=== PATIENT | female | born 1965 | race Caucasian/White ===

== ENCOUNTER 2016-11-09 10:03 | Inpatient (IN) | payer BC ==
[2016-11-09] MEDS ORDERED: Acetaminophen 325 MG Tab PO PRN (11:30)
[2016-11-09] MEDS ORDERED: Zolpidem 5 MG Tab PO PRN (11:30)
[2016-11-09] MEDS ORDERED: Morphine 2 MG/ML Syringe IVPUSH PRN (11:30)
[2016-11-09] MEDS ORDERED: Ondansetron 4 MG/2 ML SDV IVPUSH PRN (11:30)
[2016-11-09] MEDS ORDERED: Albuterol/Ipratropium 3.0-0.5 MG/3 ML Neb Soln NEB PRN (11:46)
[2016-11-09] MEDS ORDERED: TRIAMCINOLONE ACETONIDE TOP SCH (12:00)
[2016-11-09] MEDS ORDERED: TRETINOIN TOP SCH (12:00)
[2016-11-09] MEDS ORDERED: Barium Sulfate w/v 2.1% Oral Susp 450 ML Bottle PO ONE (12:01)
[2016-11-09] MEDS ORDERED: Iopamidol 612 MG/ML 100 ML Bottle IVPUSH ONE (12:01)
--- NOTE | 2016-11-09 12:05 | PCM.HP ---
H&P History of Present Illness - General Date of Service: 11/09/16 Admit Problem/Dx: Admission Diagnosis/Problem Admission Diagnosis/Problem Diverticulitis Source of Information: Patient, Family - History of Present Illness Initial Comments - Free Text/Narative: 50-year-old female with a past medical history of obesity, obstructive sleep apnea, hypertension, COPD, lower extremities edema, anxiety disorder, acne presented to Hospital as a direct admission from [facility] for low potassium. Patient stated that for the last 1 month she has been having left lower quadrant intermittent pain, diarrhea, nausea, vomiting, feeling sluggish and tired and not getting better. On September, she was seen in the clinic and had CT scan of abdomen and pelvis reported "diverticulosis and bowel wall thickening along the descending colon. Mild pericolonic inflammatory changes. No evidence of perforation or abscess formation or bleeding. Findings consistent with acute diverticulitis." At that time she was given Levaquin for 7 days. Patient symptoms continues and her diarrhea was on and off but since last Monday her diarrhea has been consistent. She has 3 watery episodes of diarrhea every day. She reported fever and chills. Recorded temperature at home 99.4. She denies blood or mucus in the stool. She denies history of traveling overseas or having antibiotic in the last few months prior to her Levaquin. She said she is maintaining good oral fluid intake. Patient denies chest pain, worsening of her baseline shortness breaths, increase of lower extremities edema , dysuria, urinary frequency, unilateral weakness/numbness/tingling, rash, headache, upper respiratory symptoms, any other symptoms or concerns. Patient denies personal history of similar problem in the past. She denies personal and family history of colon cancer or intra-abdominal cancer peptic ulcer, or Crohn or ulcerative colitis disease. She denies history of C. difficile. She admitted history of cholecystectomy 2 years ago. At the clinic she was seen yesterday and her potassium was 2.7. She was given potassium chloride 20 mEq IV and 40 mEq orally. Her potassium this morning was 2.8. - Related Data Allergies/Adverse Reactions: Allergies Allergy/AdvReac Type Severity Reaction Status Date / Time Penicillins Allergy Swollen Verified 11/08/16 16:31 Tongue CAT HAIR EXTRACT Allergy UNKNOWN Uncoded 11/08/16 16:31 DUST MITE EXTRACT Allergy UNKNOWN Uncoded 11/08/16 16:31 MOLDS AND SMUTS Allergy UNKNOWN Uncoded 11/08/16 16:31 Home Medications: Home Meds Budesonide/Formoterol [Symbicort 160-4.5 MCG] 2 puff INH BID 05/06/14 [History] Ipratropium/Albuterol Sulfate [Iprat-Albut 0.5-3(2.5) mg/3 ml] 3 ml IH Q4HR PRN 05/06/14 [History] Budesonide/Formoterol Fumarate [Symbicort 160-4.5 Mcg Inhaler] 2 puff INH BID [History] DULoxetine [Cymbalta] 1 tab PO BEDTIME 11/08/16 [History] Furosemide [Lasix] 1 tab PO DAILY 11/08/16 [History] Metolazone [Metolazone] 1 tab PO DAILY 11/08/16 [History] Ondansetron [Zofran Odt] 1 tab PO ASDIRECTED 11/08/16 [History] Potassium Chloride 1 - 2 tab PO BID 11/08/16 [History] Tretinoin [Retin-A] 1 squirt TOP ASDIRECTED 11/08/16 [History] Triamcinolone Acetonide [Kenalog 0.1% Lotion] 1 squirt TOP ASDIRECTED 11/08/16 [ History] atorvaSTATin [Lipitor] 40 mg PO BEDTIME 11/08/16 [History] metFORMIN HCl [Metformin HCl] 1,000 mg PO BID 11/08/16 [History] Past Medical History HEENT History: Reports: Sinusitis Cardiovascular History: Reports: Hypertension, Other (See Below) Other Cardiovascular History: low potassium Respiratory History: Reports: COPD, Pneumonia, Recurrent, Sleep Apnea, Other ( See Below) Other Respiratory History: emphysema, acute respiratory disorder Gastrointestinal History: Reports: Diverticulosis, Other (See Below) Other Gastrointestinal History: diverticulitis Genitourinary History: Reports: None 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: , 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 Musculoskeletal History: Reports: None Neurological History: Reports: None Psychiatric History: Reports: Anxiety Endocrine/Metabolic History: Reports: Diabetes, Type II Other Endocrine/Metabolic History: borderline diabetic Hematologic History: Reports: None Immunologic History: Reports: None Oncologic (Cancer) History: Reports: None Dermatologic History: Reports: Other (See Below) Other Dermatologic History: acne - Infectious Disease History Infectious Disease History: Reports: None - Past Surgical History Head Surgeries/Procedures: Reports: None HEENT Surgical History: Reports: None Cardiovascular Surgical History: Reports: None Respiratory Surgical History: Reports: None GI Surgical History: Reports: Cholecystectomy, Colonoscopy Female Surgical History: Reports: Breast Biopsy Musculoskeletal Surgical History: Reports: None Social & Family History - Family History Family Medical History: Noncontributory - Tobacco Use Smoking Status *Q: Former Smoker Years of Tobacco use: 36 Used Tobacco, but Quit: No Month Tobacco Last Used: 2 days ago Tobacco Use Comment: quit 3 years ago Second Hand Smoke Exposure: No - Caffeine Use Caffeine Use: Reports: None - Alcohol Use Days Per Week of Alcohol Use: 0 - Recreational Drug Use Recreational Drug Use: No H&P Review of Systems - Review of Systems: Review Of Systems: ROS reveals no pertinent complaints other than HPI. Exam - Exam Exam: See Below - Vital Signs Vital Signs: Last Vital Signs Temp 36.1 C 11/09/16 11:32 Pulse 92 11/09/16 11:32 Resp 20 11/09/16 11:32 BP 133/65 11/09/16 11:32 Pulse Ox 97 11/09/16 11:32 Weight: 107.955 kg - Exam General: Alert, Oriented, Cooperative, Mild Distress. No: Moderate Distress, Severe Distress, Sedated, Lethargic, Obtunded HEENT: Conjunctiva Clear, EACs Clear, EOMI, Hearing Intact, Mucosa Moist & [place] , Nares Patent, Normal Nasal Septum, Posterior Pharynx Clear, Pupils Equal, Pupils Reactive, TMs Clear, Other (Dry mucosa) Neck: Supple, Trachea Midline. No: JVD Lungs: Clear to Auscultation, Normal Respiratory Effort, Decreased Breath Sounds. No: Crackles, Rales, Rhonchi, Wheezing Cardiovascular: Regular Rate, Regular Rhythm GI/Abdominal Exam: Normal Bowel Sounds, Soft, No Organomegaly, No Distention, No Abnormal Bruit, No Mass, Pelvis Stable, Tender (In left lower quadrant), Other (Overall difficult to do comprehensive exam due to body habitus). No: Distended, Guarding, Rigid, Rebound (Female) Exam: Deferred Rectal (Female) Exam: Deferred Back Exam: Normal Inspection, Full Range of Motion Extremities: Normal Inspection, Normal Range of Motion, Non-Tender, No Pedal Edema, Normal Capillary Refill Skin: Warm, Dry, Intact Neurological: Cranial Nerves Intact Neuro Extensive - Mental Status: Alert, Oriented x3, Normal Mood/Affect Psychiatric: Alert. No: Suicidal Ideation, Homicidal Ideation, Hallucinations *Q Meaningful Use (ADM) - VTE *Q VTE Criteria *Q: - Stroke *Q Stroke Criteria *Q: - AMI *Q AMI Criteria *Q: - Problem List (1) Hypokalemia SNOMED Code(s): 41521049 ICD Code: E87.6 - HYPOKALEMIA Status: Acute Priority: High (2) Diverticulitis SNOMED Code(s): 275741682 ICD Code: K57.92 - DVTRCLI OF INTEST, PART UNSP, W/O PERF OR ABSCESS W/O BLEED Status: Acute Priority: High (3) COPD (chronic obstructive pulmonary disease) SNOMED Code(s): 61100686 ICD Code: J44.9 - CHRONIC OBSTRUCTIVE PULMONARY DISEASE, UNSPECIFIED Status : Chronic (4) Morbid obesity with BMI of 45.0-49.9, adult SNOMED Code(s): 041055404 ICD Code: E66.01 - MORBID (SEVERE) OBESITY DUE TO EXCESS CALORIES; Z68.42 - BODY MASS INDEX (BMI) 45.0-49.9, ADULT Status: Chronic (5) Lower extremity edema SNOMED Code(s): 163657744 ICD Code: R60.0 - LOCALIZED EDEMA Status: Chronic Problem List Initiated/Reviewed/Updated: Yes Orders Last 24hrs: Active Orders 24 hr Category Date Time Status Patient Status [ADT] Routine ADT 11/09/16 11:30 Ordered Antiembolic Devices [RC] PER UNIT ROUTINE Care 11/09/16 11:34 Ordered Bedrest Bathroom Privileges [RC] ASDIRECTED Care 11/09/16 11:30 Ordered Blood Glucose Check, Bedside [RC] QIDACANDBED Care 11/09/16 11:30 Ordered Height and Weight [RC] DAILY Care 11/09/16 11:30 Ordered Intake and Output [RC] Q6H Care 11/09/16 11:32 Ordered Notify Provider Vital Signs [RC] ASDIRECTED Care 11/09/16 11:32 Ordered Oxygen Therapy [RC] PRN Care 11/09/16 11:30 Ordered VTE/DVT Education [RC] PER UNIT ROUTINE Care 11/09/16 11:30 Ordered Vital Signs [RC] Q4H Care 11/09/16 11:30 Ordered Nothing per Oral Now Diet [DIET] Diet 11/09/16 Breakfast Ordered Abdomen Pelvis w Cont [CT] Routine Exams 11/09/16 11:51 Ordered C DIFFICILE TOXIN BY PCR [MREF] Urgent Lab 11/09/16 11:44 Uncollected C-REACTIVE PROTEIN [CHEM] Routine Lab 11/09/16 11:30 Ordered CBC WITH AUTO DIFF [HEME] AM Lab 11/10/16 05:11 Ordered CBC WITH AUTO DIFF [HEME] Routine Lab 11/09/16 11:30 Ordered COMPREHENSIVE METABOLIC PN,CMP [CHEM] AM Lab 11/10/16 05:11 Ordered COMPREHENSIVE METABOLIC PN,CMP [CHEM] Routine Lab 11/09/16 11:30 Ordered CRP [C-REACTIVE PROTEIN] [CHEM] AM Lab 11/10/16 05:11 Ordered CULTURE BLOOD [BC] Stat Lab 11/09/16 11:40 Ordered CULTURE BLOOD [BC] Stat Lab 11/09/16 11:40 Ordered CULTURE STOOL [RM] Routine Lab 11/09/16 11:44 Uncollected Acetaminophen [Tylenol] Med 11/09/16 11:30 Ordered 650 mg PO Q4H PRN Albuterol/Ipratropium [DuoNeb 3.0-0.5 MG/3 ML] Med 11/09/16 11:46 Ordered 3 ml NEB Q4HR PRN Budesonide/Formoterol Fumarate Med 11/09/16 21:00 Ordered 2 puff INH BID Ciprofloxacin in D5W [Cipro in D5W 400 MG/200 ML] 400 Med 11/09/16 11:45 Ordered mg Premix Bag 1 bag IV Q12HR DULoxetine [Cymbalta] Med 11/09/16 21:00 Ordered 1 tab PO BEDTIME Enoxaparin [Lovenox] Med 11/10/16 09:00 Ordered 40 mg SUBCUT DAILY Morphine Med 11/09/16 11:30 Ordered 2 mg IVPUSH Q2H PRN Ondansetron [Zofran] Med 11/09/16 11:30 Ordered 4 mg IVPUSH Q6H PRN Potassium Chloride [KCl 10 MEQ in Water 100 ML] 10 meq Med 11/09/16 11:30 Ordered Premix Bag 1 bag IV Q1H Potassium Chloride [Klor-Con 10] Med 11/09/16 11:45 Ordered 40 meq PO BIDMEALS Sodium Chloride 0.9% @ 125 MLS/HR (1000ml) Med 11/09/16 11:30 Ordered Sodium Chloride 0.9% [Normal Saline] 1,000 ml IV ASDIRECTED Tretinoin [Retin-A] Med 11/09/16 12:00 Ordered 1 squirt TOP ASDIRECTED Triamcinolone Acetonide Med 11/09/16 12:00 Ordered 1 squirt TOP ASDIRECTED Zolpidem [Ambien] Med 11/09/16 11:30 Ordered 5 mg PO BEDTIME PRN atorvaSTATin [Lipitor] Med 11/09/16 21:00 Ordered 40 mg PO BEDTIME metroNIDAZOLE/Normal Saline [Flagyl 500 MG in NS 100 ML Med 11/09/16 11:45 Ordered ] 500 mg Premix Bag 100 bag IV Q8H Antiembolic Hose [OM.PC] Per Unit Routine Oth 11/09/16 11:33 Ordered Blood Culture x2 Reflex Set [OM.PC] Stat Oth 11/09/16 11:30 Ordered Resuscitation Status Routine Resus Stat 11/09/16 11:30 Ordered Medication Orders Acetaminophen (Tylenol) 650 mg PO Q4H PRN PRN Reason: Pain (Mild 1-3)/fever Albuterol/Ipratropium (Duoneb 3.0-0.5 Mg/3 Ml) 3 ml NEB Q4HR PRN PRN Reason: Shortness of Breath Duloxetine HCl (Cymbalta) mg PO BEDTIME MORIAH Enoxaparin Sodium (Lovenox) 40 mg SUBCUT DAILY MORIAH Potassium Chloride 10 meq/ (Premix) 100 mls @ 100 mls/hr IV Q1H [facility] Stop: 11/09/16 15:29 Sodium Chloride (Normal Saline) 1,000 mls @ 125 mls/hr IV ASDIRECTED [facility]IA[facility] Stop: 11/10/16 11:31 Ciprofloxacin/Dextrose 400 mg/ (Premix) 200 mls @ 200 mls/hr IV Q12HR [facility] Metronidazole 500 mg/ Premix 100 mls @ 100 mls/hr IV Q8H [facility] Morphine Sulfate (Morphine) 2 mg IVPUSH Q2H PRN PRN Reason: Pain (severe 7-10) Non-Formulary Medication (Atorvastatin [Lipitor]) 40 mg PO BEDTIME MORIA[facility] Non-Formulary Medication (Budesonide/Formoterol Fumarate) 2 puff INH BID [facility] Non-Formulary Medication (Tretinoin [Retin-A]) 1 squirt TOP ASDIRECTED [facility] Non-Formulary Medication (Triamcinolone Acetonide) 1 squirt TOP ASDIRECTED [facility] Ondansetron HCl (Zofran) 4 mg IVPUSH Q6H PRN PRN Reason: Nausea/Vomiting Potassium Chloride (Klor-Con 10) 40 meq PO BIDMEALS [facility] Stop: 11/10/16 08:01 Zolpidem Tartrate (Ambien) 5 mg PO BEDTIME PRN PRN Reason: Sleep Assessment/Plan Comment:: Assessment and plan Hypokalemia, most likely from GI loss Potassium on admission 2.8. EKG was done yesterday and I reviewed it and did not show abnormal acute findings -Potassium chloride 40 mEq IV now with 40 mEq orally now. -Potassium chloride 40 mEq by mouth every 8 hours for total of 3 doses -check potassium this evening and tomorrow morning Diverticulitis -CT abdomen and pelvis with contrast ordered -C. difficile and stool cultures ordered -CBC and CRP ordered -Start ciprofloxacin and Flagyl IV -Morphine for pain as needed -Nothing by mouth except meds and sips -She is follow-up with GI for possible colonoscopy after being discharged Dehydration, from GI loss -Normal saline fluid infusion at 1 25 mL per hour -CMP ordered History of COPD, no exacerbation Continue home medication of Symbicort and DuoNeb Diabetes mellitus type 2 -Hold metformin since she is going to have IV contrast Sliding scale insulin, low-dose Lovenox for DVT prophylaxis She is full code
[2016-11-09] MEDS: Potassium Chloride 10 MEQ Tab.ER PO SCH ×2 (12:28→18:04)
[2016-11-09] MEDS: Ciprofloxacin in D5W 400 MG in Premix Bag 1 BAG IV SCH ×4 (12:28→22:27)
[2016-11-09] MEDS: Sodium Chloride 0.9% 1,000 ML IV SCH ×2 (12:28→22:28)
[2016-11-09] MEDS: Potassium Chloride 10 MEQ in Premix Bag 1 BAG IV SCH ×4 (12:29→18:02)
[2016-11-09 12:35] LABS: CHLORIDE,CL 92 mmol/L (101-111); SODIUM,NA 138 mmol/L (135-145)
[2016-11-09] MEDS: metroNIDAZOLE/Normal Saline 500 MG in Premix Bag 100 BAG IV SCH ×2 (14:44→20:56)
[2016-11-09] MEDS: Insulin Aspart 100 Units/ML 3 ML Pen SUBCUT SCH ×2 (16:56→22:30)
[2016-11-09] MEDS: Formoterol/Mometasone 200-5 MCG 8.8 GM Inhaler IH SCH (21:30)
[2016-11-10] MEDS ORDERED: Potassium Chloride 10 MEQ Tab.ER PO ONE (00:01)
[2016-11-10] MEDS: metroNIDAZOLE/Normal Saline 500 MG in Premix Bag 100 BAG IV SCH ×3 (04:57→21:37)
[2016-11-10] MEDS: Sodium Chloride 0.9% 1,000 ML IV SCH (06:41)
[2016-11-10 07:05] LABS: CHLORIDE,CL 101 mmol/L (101-111); SODIUM,NA 139 mmol/L (135-145)
[2016-11-10] MEDS ORDERED: Magnesium Sulfate/Water 2 GM in Premix Bag 1 BAG IV ONE (08:34)
[2016-11-10] MEDS: Ciprofloxacin in D5W 400 MG in Premix Bag 1 BAG IV SCH ×4 (09:07→23:20)
[2016-11-10] MEDS: Insulin Aspart 100 Units/ML 3 ML Pen SUBCUT SCH ×4 (09:08→22:04)
[2016-11-10] MEDS: atorvaSTATin 20 MG Tab PO SCH (09:08)
[2016-11-10] MEDS: DULoxetine 30 MG Cap PO SCH (09:08)
[2016-11-10] MEDS: Enoxaparin 40 MG/0.4 ML Syringe SUBCUT SCH (09:10)
[2016-11-10] MEDS: Formoterol/Mometasone 200-5 MCG 8.8 GM Inhaler IH SCH ×2 (09:11→21:57)
[2016-11-10] MEDS ORDERED: Sodium Chloride 0.9% 1,000 ML IV SCH (10:45)
--- NOTE | 2016-11-10 12:26 | PCM.PN ---
- General Info Date of Service: 11/10/16 Admission Dx/Problem (Free Text): Admission Diagnosis/Problem Admission Diagnosis/Problem Diverticulitis Subjective Update: Patient stated that she is feeling better. Her abdominal pain is better and has not had diarrhea since admission. She denies nausea, vomiting, fever, chills, chest pain, shortness breath, lower extremity edema, any other symptoms or concerns. - Patient Data Vitals - Most Recent: Last Vital Signs Temp 36.6 C 11/10/16 11:53 Pulse 77 11/10/16 11:53 Resp 20 11/10/16 11:53 BP 116/54 L 11/10/16 11:53 Pulse Ox 95 11/10/16 11:53 Weight - Most Recent: 110.393 kg I&O - Last 24 Hours: Intake & Output 11/09/16 11/10/16 11/10/16 22:59 06:59 14:59 Intake Total 1343 2075 190 Output Total 700 700 Balance 1343 1375 -510 Lab Results Last 24 Hours: Laboratory Results - last 24 hr 11/09/16 11/09/16 11/09/16 Range/Units 12:00 12:00 16:44 WBC (5.0-10.0) 10^3/uL RBC (4.2-5.4) 10^6/uL Hgb (12.0-16.0) g/dL Hct (37.0-47.0) % MCV (80-100) fL MCH (27.0-34.0) pg MCHC (33.0-35.0) g/dL Plt Count (150-450) 10^3/uL Neut % (Auto) (42.2-75.2) % Lymph % (Auto) (20.5-50.1) % Jones % (Auto) (2-8) % Eos % (Auto) (1.0-3.0) % Baso % (Auto) (0.0-1.0) % Sodium 138 (135-145) mmol/L Potassium 3.0 L (3.6-5.0) mmol/L Chloride 92 L (101-111) mmol/L Carbon Dioxide 30.0 (21.0-31.0) mmol/L Anion Gap 19.0 BUN 16 (7-18) mg/dL Creatinine 0.7 (0.6-1.3) mg/dL Est Cr Clr Drug Dosing 70.94 mL/min Estimated GFR (MDRD) > 60 BUN/Creatinine Ratio 22.85 Glucose 219 H (74-105) mg/dL POC Glucose 124 H (70-105) mg/dl Calcium 9.7 (8.4-10.2) mg/dl Phosphorus (2.5-4.6) mg/dL Magnesium (1.8-2.5) mg/dL Total Bilirubin 0.8 (0.2-1.0) mg/dL AST 43 H (10-42) IU/L ALT 40 (10-60) IU/L Alkaline Phosphatase 66 (42-121) IU/L C-Reactive Protein 1.0 (0.0-1.3) mg/dL Total Protein 7.0 (6.7-8.2) g/dl Albumin 3.8 (3.2-5.5) g/dl Globulin 3.2 Albumin/Globulin Ratio 1.19 11/09/16 11/09/16 11/10/16 Range/Units 18:30 20:40 06:30 WBC 5.8 (5.0-10.0) 10^3/uL RBC 4.31 (4.2-5.4) 10^6/uL Hgb 13.2 (12.0-16.0) g/dL Hct 40.1 (37.0-47.0) % MCV 93.0 (80-100) fL MCH 30.6 (27.0-34.0) pg MCHC 32.9 L (33.0-35.0) g/dL Plt Count 277 (150-450) 10^3/uL Neut % (Auto) 51.9 (42.2-75.2) % Lymph % (Auto) 37.0 (20.5-50.1) % [place] % (Auto) 9.4 H (2-8) % Eos % (Auto) 1.4 (1.0-3.0) % Baso % (Auto) 0.3 (0.0-1.0) % Sodium (135-145) mmol/L Potassium 3.1 L (3.6-5.0) mmol/L Chloride (101-111) mmol/L Carbon Dioxide (21.0-31.0) mmol/L Anion Gap BUN (7-18) mg/dL Creatinine (0.6-1.3) mg/dL Est Cr Clr Drug Dosing mL/min Estimated GFR (MDRD) BUN/Creatinine Ratio Glucose (74-105) mg/dL POC Glucose 126 H (70-105) mg/dl Calcium (8.4-10.2) mg/dl Phosphorus (2.5-4.6) mg/dL Magnesium (1.8-2.5) mg/dL Total Bilirubin (0.2-1.0) mg/dL AST (10-42) IU/L ALT (10-60) IU/L Alkaline Phosphatase (42-121) IU/L C-Reactive Protein (0.0-1.3) mg/dL Total Protein (6.7-8.2) g/dl Albumin (3.2-5.5) g/dl Globulin Albumin/Globulin Ratio 11/10/16 11/10/16 11/10/16 Range/Units 06:30 06:30 06:30 WBC (5.0-10.0) 10^3/uL RBC (4.2-5.4) 10^6/uL Hgb (12.0-16.0) g/dL Hct (37.0-47.0) % MCV (80-100) fL MCH (27.0-34.0) pg MCHC (33.0-35.0) g/dL Plt Count (150-450) 10^3/uL Neut % (Auto) (42.2-75.2) % Lymph % (Auto) (20.5-50.1) % Jones % (Auto) (2-8) % Eos % (Auto) (1.0-3.0) % Baso % (Auto) (0.0-1.0) % Sodium 139 (135-145) mmol/L Potassium 3.7 (3.6-5.0) mmol/L Chloride 101 (101-111) mmol/L Carbon Dioxide 27.0 (21.0-31.0) mmol/L Anion Gap 14.7 BUN 12 (7-18) mg/dL Creatinine 0.8 (0.6-1.3) mg/dL Est Cr Clr Drug Dosing 62.07 mL/min Estimated GFR (MDRD) > 60 BUN/Creatinine Ratio 15.00 Glucose 179 H (74-105) mg/dL POC Glucose (70-105) mg/dl Calcium 8.2 L (8.4-10.2) mg/dl Phosphorus 3.6 (2.5-4.6) mg/dL Magnesium 1.7 L (1.8-2.5) mg/dL Total Bilirubin 0.9 (0.2-1.0) mg/dL AST 42 (10-42) IU/L ALT 38 (10-60) IU/L Alkaline Phosphatase 62 (42-121) IU/L C-Reactive Protein 1.0 (0.0-1.3) mg/dL Total Protein 6.4 L (6.7-8.2) g/dl Albumin 3.5 (3.2-5.5) g/dl Globulin 2.9 Albumin/Globulin Ratio 1.21 11/10/16 11/10/16 Range/Units 08:22 11:03 WBC (5.0-10.0) 10^3/uL RBC (4.2-5.4) 10^6/uL Hgb (12.0-16.0) g/dL Hct (37.0-47.0) % MCV (80-100) fL MCH (27.0-34.0) pg MCHC (33.0-35.0) g/dL Plt Count (150-450) 10^3/uL Neut % (Auto) (42.2-75.2) % Lymph % (Auto) (20.5-50.1) % Jones % (Auto) (2-8) % Eos % (Auto) (1.0-3.0) % Baso % (Auto) (0.0-1.0) % Sodium (135-145) mmol/L Potassium (3.6-5.0) mmol/L Chloride (101-111) mmol/L Carbon Dioxide (21.0-31.0) mmol/L Anion Gap BUN (7-18) mg/dL Creatinine (0.6-1.3) mg/dL Est Cr Clr Drug Dosing mL/min Estimated GFR (MDRD) BUN/Creatinine Ratio Glucose (74-105) mg/dL POC Glucose 167 H 207 H (70-105) mg/dl Calcium (8.4-10.2) mg/dl Phosphorus (2.5-4.6) mg/dL Magnesium (1.8-2.5) mg/dL Total Bilirubin (0.2-1.0) mg/dL AST (10-42) IU/L ALT (10-60) IU/L Alkaline Phosphatase (42-121) IU/L C-Reactive Protein (0.0-1.3) mg/dL Total Protein (6.7-8.2) g/dl Albumin (3.2-5.5) g/dl Globulin Albumin/Globulin Ratio Wu Results Last 24 Hours: Microbiology 11/09/16 12:08 Aerobic Blood Culture - Preliminary Blood - Venous NO GROWTH AFTER 1 DAY Anaerobic Blood Culture - Preliminary NO GROWTH AFTER 1 DAY 11/09/16 12:00 Aerobic Blood Culture - Preliminary Blood - Venous - Lab Draw NO GROWTH AFTER 1 DAY Anaerobic Blood Culture - Preliminary NO GROWTH AFTER 1 DAY 11/09/16 14:05 Stool Culture - Preliminary Other - Stool NORMAL ENTERIC MAYE 1 DAY Med Orders - Current: Current Medications Acetaminophen (Tylenol) 650 mg PO Q4H PRN PRN Reason: Pain (Mild 1-3)/fever Albuterol/Ipratropium (Duoneb 3.0-0.5 Mg/3 Ml) 3 ml NEB Q4HR PRN PRN Reason: Shortness of Breath Atorvastatin Calcium (Lipitor) 40 mg PO DAILY [facility] Last Admin: 11/10/16 09:08 Dose: 40 mg Duloxetine HCl (Cymbalta) 30 mg PO DAILY [facility] Last Admin: 11/10/16 09:08 Dose: 30 mg Enoxaparin Sodium (Lovenox) 40 mg SUBCUT DAILY [facility] Last Admin: 11/10/16 09:10 Dose: 40 mg Ciprofloxacin/Dextrose 400 mg/ (Premix) 200 mls @ 200 mls/hr IV Q12HR [facility] Last Admin: 11/10/16 09:07 Dose: 200 mls/hr Metronidazole 500 mg/ Premix 100 mls @ 100 mls/hr IV Q8H [facility] Last Admin: 11/10/16 04:57 Dose: 100 mls/hr Sodium Chloride (Normal Saline) 1,000 mls @ 75 mls/hr IV ASDIRECTED [facility] Stop: 11/11/16 10:46 Insulin Aspart (Novolog) 0 unit SUBCUT QIDACANDBED [facility] PRN Reason: Protocol Last Admin: 11/10/16 09:08 Dose: 1 units Mometasone Furoate/Formoterol Fumar (Dulera 200-5 Mcg) 2 puff IH BID [facility] Last Admin: 11/10/16 09:11 Dose: 2 puff Morphine Sulfate (Morphine) 2 mg IVPUSH Q2H PRN PRN Reason: Pain (severe 7-10) Ondansetron HCl (Zofran) 4 mg IVPUSH Q6H PRN PRN Reason: Nausea/Vomiting Zolpidem Tartrate (Ambien) 5 mg PO BEDTIME PRN PRN Reason: Sleep Discontinued Medications Barium Sulfate (Readi-Cat 2) 900 ml PO ONETIME ONE Stop: 11/09/16 12:02 Last Admin: 11/09/16 12:29 Dose: 900 ml Potassium Chloride 10 meq/ (Premix) 100 mls @ 100 mls/hr IV Q1H [facility] Stop: 11/09/16 16:29 Last Admin: 11/09/16 18:02 Dose: 100 mls/hr Sodium Chloride (Normal Saline) 1,000 mls @ 125 mls/hr IV ASDIRECTED [facility] Stop: 11/10/16 11:31 Last Admin: 11/10/16 06:41 Dose: 125 mls/hr Magnesium Sulfate 2 gm/ Premix 50 mls @ 25 mls/hr IV ONETIME ONE Stop: 11/10/16 10:33 Last Admin: 11/10/16 09:07 Dose: 25 mls/hr Iopamidol (Isovue-300 (61%)) 100 ml IVPUSH ONETIME ONE Stop: 11/09/16 12:02 Last Admin: 11/09/16 13:52 Dose: 100 ml Non-Formulary Medication (Tretinoin [Retin-A]) 1 squirt TOP ASDIRECTED [facility] Non-Formulary Medication (Triamcinolone Acetonide) 1 squirt TOP ASDIRECTED [facility] Potassium Chloride (Klor-Con 10) 40 meq PO BIDMEALS [facility] Stop: 11/09/16 18:01 Last Admin: 11/09/16 18:04 Dose: 40 meq Potassium Chloride (Klor-Con 10) 40 meq PO ONETIME ONE Stop: 11/10/16 00:02 Last Admin: 11/10/16 00:41 Dose: 40 meq - Exam General: Alert, Oriented, Cooperative. No: No Acute Distress, Moderate Distress , Severe Distress, Sedated, Lethargic, Obtunded HEENT: Pupils Equal, Pupils Reactive, EOMI, Mucous Membr. Moist/[place] Neck: Supple, Trachea Midline, No JVD Lungs: Clear to Auscultation, Normal Respiratory Effort Cardiovascular: Regular Rate, Regular Rhythm GI/Abdominal Exam: Normal Bowel Sounds, Soft, No Organomegaly, No Distention, No Abnormal Bruit, No Mass, Tender (Mild tenderness in left lower quadrant on deep palpation. Overall difficult to have comprehensive abdominal exam due to body habitus). No: Distended, Guarding, Rigid, Rebound (Female) Exam: Deferred Back Exam: Normal Inspection, Full Range of Motion Extremities: Normal Inspection, Normal Range of Motion, Non-Tender, No Pedal Edema, Normal Capillary Refill Skin: Warm, Dry, Intact Neurological: No New Focal Deficit Psy/Mental Status: Alert, Normal Affect, Normal Mood - Problem List & Annotations (1) Hypokalemia SNOMED Code(s): 73875206 Code(s): E87.6 - HYPOKALEMIA Status: Acute Priority: High Current Visit : Yes (2) Diverticulitis SNOMED Code(s): 605176345 Code(s): K57.92 - DVTRCLI OF INTEST, PART UNSP, W/O PERF OR ABSCESS W/O BLEED Status: Acute Priority: High Current Visit: Yes (3) COPD (chronic obstructive pulmonary disease) SNOMED Code(s): 47874955 Code(s): J44.9 - CHRONIC OBSTRUCTIVE PULMONARY DISEASE, UNSPECIFIED Status : Chronic Current Visit: Yes (4) Morbid obesity with BMI of 45.0-49.9, adult SNOMED Code(s): 091337443 Code(s): E66.01 - MORBID (SEVERE) OBESITY DUE TO EXCESS CALORIES; Z68.42 - BODY MASS INDEX (BMI) 45.0-49.9, ADULT Status: Chronic Current Visit: Yes (5) Lower extremity edema SNOMED Code(s): 639315810 Code(s): R60.0 - LOCALIZED EDEMA Status: Chronic Current Visit: Yes - Problem List Review Problem List Initiated/Reviewed/Updated: Yes - My Orders Last 24 Hours: My Active Orders 11/09/16 11:30 Patient Status [ADT] Routine Bedrest Bathroom Privileges [RC] ASDIRECTED Blood Glucose Check, Bedside [RC] QIDACANDBED Height and Weight [RC] DAILY Oxygen Therapy [RC] PRN VTE/DVT Education [RC] PER UNIT ROUTINE Vital Signs [RC] Q4H Acetaminophen [Tylenol] 650 mg PO Q4H PRN Morphine 2 mg IVPUSH Q2H PRN Ondansetron [Zofran] 4 mg IVPUSH Q6H PRN Zolpidem [Ambien] 5 mg PO BEDTIME PRN Blood Culture x2 Reflex Set [OM.PC] Stat Resuscitation Status Routine 11/09/16 11:32 Intake and Output [RC] Q6H Notify Provider Vital Signs [RC] ASDIRECTED 11/09/16 11:33 Antiembolic Hose [OM.PC] Per Unit Routine 11/09/16 11:34 Antiembolic Devices [RC] 11/09/16 11:45 Ciprofloxacin in D5W [Cipro in D5W 400 MG/200 ML] 400 mg Premix Bag 1 bag IV Q12HR 11/09/16 11:46 Albuterol/Ipratropium [DuoNeb 3.0-0.5 MG/3 ML] 3 ml NEB Q4HR PRN 11/09/16 12:00 CULTURE BLOOD [BC] Stat metroNIDAZOLE/Normal Saline [Flagyl 500 MG in NS 100 ML] 500 mg Premix Bag 100 bag IV Q8H 11/09/16 12:08 CULTURE BLOOD [BC] Stat 11/09/16 12:14 Communication Order [RC] ROUTINE 11/09/16 14:05 C DIFFICILE TOXIN BY PCR [MREF] Urgent CULTURE STOOL [RM] Routine SHIGA TOXIN 1 & 2 [MREF] Routine 11/09/16 17:00 Insulin Aspart [NovoLOG] See Protocol SUBCUT QIDACANDBED 11/09/16 21:00 Mometasone/Formoterol [Dulera 200-5 MCG] 2 puff IH BID 11/09/16 22:46 Communication Order [RC] ROUTINE 11/10/16 09:00 DULoxetine [Cymbalta] 30 mg PO DAILY Enoxaparin [Lovenox] 40 mg SUBCUT DAILY atorvaSTATin [Lipitor] 40 mg PO DAILY 11/10/16 10:45 Sodium Chloride 0.9% [Normal Saline] 1,000 ml IV ASDIRECTED 11/10/16 Breakfast Clear Liquid Diet [DIET] 11/11/16 05:11 BASIC METABOLIC PANEL,BMP [CHEM] AM CBC WITH AUTO DIFF [HEME] AM MAGNESIUM [CHEM] AM - Plan Plan:: Assessment and plan Hypokalemia, most likely from GI loss Potassium on admission 2.8. EKG did not show abnormal acute findings She received potassium chloride 40 mEq IV and total of 120 mEq orally -Potassium is 3.7 this morning -check potassium this evening and tomorrow morning Diverticulitis -CT abdomen and pelvis with contrast reported "possible mild diffuse inflammatory changes of the descending and sigmoid colon. The findings may represent infectious colitis including pseudomembranous colitis or possible inflammatory bowel disease. Hepatomegaly with diffuse fatty infiltration." -C. difficile and stool cultures ordered -Continue ciprofloxacin and Flagyl IV Morphine for pain as needed -Start clear liquid diet -She was advised to follow-up with GI for possible colonoscopy after being discharged Dehydration, from GI loss -Continue normal saline infusion but decrease rate from 125-75 mL since she is on liquid diet Hypomagnesemia Magnesium level is 1.7 2 g of magnesium sulfate given History of COPD, no exacerbation Continue home medication of Symbicort and DuoNeb Diabetes mellitus type 2 -Hold metformin since she is going to have IV contrast Sliding scale insulin, low-dose History of lower extremity edema She takes Lasix and metolazone -They are on hold due to dehydration. We will resume them tomorrow Lovenox for DVT prophylaxis She is full code
[2016-11-11] MEDS: metroNIDAZOLE/Normal Saline 500 MG in Premix Bag 100 BAG IV SCH ×3 (04:07→20:45)
[2016-11-11 06:40] LABS: CHLORIDE,CL 104 mmol/L (101-111); SODIUM,NA 141 mmol/L (135-145)
[2016-11-11] MEDS: atorvaSTATin 20 MG Tab PO SCH (08:44)
[2016-11-11] MEDS: DULoxetine 30 MG Cap PO SCH (08:44)
[2016-11-11] MEDS: Formoterol/Mometasone 200-5 MCG 8.8 GM Inhaler IH SCH ×2 (08:44→21:58)
[2016-11-11] MEDS: Enoxaparin 40 MG/0.4 ML Syringe SUBCUT SCH (08:44)
[2016-11-11] MEDS: Ciprofloxacin in D5W 400 MG in Premix Bag 1 BAG IV SCH ×2 (08:45)
[2016-11-11] MEDS: Insulin Aspart 100 Units/ML 3 ML Pen SUBCUT SCH ×4 (08:45→21:58)
[2016-11-11] MEDS: Furosemide 40 MG Tab PO SCH (10:01)
[2016-11-11] MEDS: Potassium Chloride 10 MEQ Tab.ER PO SCH ×2 (10:01→17:02)
[2016-11-11] MEDS ORDERED: Potassium Chloride 10 MEQ Tab.ER PO ONE (14:32)
[2016-11-11] MEDS ORDERED: Furosemide 40 MG/4 ML VIAL IVPUSH ONE (14:32)
--- NOTE | 2016-11-11 14:34 | PCM.PN ---
- General Info Date of Service: 11/11/16 Admission Dx/Problem (Free Text): Admission Diagnosis/Problem Admission Diagnosis/Problem Diverticulitis Subjective Update: Patient stated that she is feeling better. However she started having lower and upper extremities edema. She denies nausea, vomiting, abdominal pain, fever, chills, chest pain, shortness breath, any other symptoms or concerns. - Patient Data Vitals - Most Recent: Last Vital Signs Temp 36.6 C 11/11/16 12:21 Pulse 72 11/11/16 12:21 Resp 14 11/11/16 12:21 BP 127/73 11/11/16 12:21 Pulse Ox 96 11/11/16 11:00 Weight - Most Recent: 112.4 kg I&O - Last 24 Hours: Intake & Output 11/10/16 11/11/16 11/11/16 22:59 06:59 14:59 Intake Total 1065 1223 900 Output Total 550 1100 Balance 1065 673 -200 Lab Results Last 24 Hours: Laboratory Results - last 24 hr 11/10/16 11/10/16 11/11/16 Range/Units 16:51 20:36 05:35 WBC (5.0-10.0) 10^3/uL RBC (4.2-5.4) 10^6/uL Hgb (12.0-16.0) g/dL Hct (37.0-47.0) % MCV (80-100) fL MCH (27.0-34.0) pg MCHC (33.0-35.0) g/dL Plt Count (150-450) 10^3/uL Neut % (Auto) (42.2-75.2) % Lymph % (Auto) (20.5-50.1) % [place] % (Auto) (2-8) % Eos % (Auto) (1.0-3.0) % Baso % (Auto) (0.0-1.0) % Sodium 141 (135-145) mmol/L Potassium 3.3 L (3.6-5.0) mmol/L Chloride 104 (101-111) mmol/L Carbon Dioxide 26.0 (21.0-31.0) mmol/L Anion Gap 14.3 BUN 8 (7-18) mg/dL Creatinine 0.8 (0.6-1.3) mg/dL Est Cr Clr Drug Dosing 62.07 mL/min Estimated GFR (MDRD) > 60 Glucose 159 H (74-105) mg/dL POC Glucose 156 H 162 H (70-105) mg/dl Calcium 8.2 L (8.4-10.2) mg/dl Magnesium 2.0 (1.8-2.5) mg/dL 11/11/16 11/11/16 Range/Units 05:55 08:14 WBC 5.0 (5.0-10.0) 10^3/uL RBC 4.04 L (4.2-5.4) 10^6/uL Hgb 12.5 (12.0-16.0) g/dL Hct 37.8 (37.0-47.0) % MCV 93.6 (80-100) fL MCH 30.9 (27.0-34.0) pg MCHC 33.1 (33.0-35.0) g/dL Plt Count 242 (150-450) 10^3/uL Neut % (Auto) 56.7 (42.2-75.2) % Lymph % (Auto) 31.5 (20.5-50.1) % [place] % (Auto) 9.4 H (2-8) % Eos % (Auto) 2.0 (1.0-3.0) % Baso % (Auto) 0.4 (0.0-1.0) % Sodium (135-145) mmol/L Potassium (3.6-5.0) mmol/L Chloride (101-111) mmol/L Carbon Dioxide (21.0-31.0) mmol/L Anion Gap BUN (7-18) mg/dL Creatinine (0.6-1.3) mg/dL Est Cr Clr Drug Dosing mL/min Estimated GFR (MDRD) Glucose (74-105) mg/dL POC Glucose 162 H (70-105) mg/dl Calcium (8.4-10.2) mg/dl Magnesium (1.8-2.5) mg/dL Wu Results Last 24 Hours: Microbiology 11/09/16 12:08 Aerobic Blood Culture - Preliminary Blood - Venous NO GROWTH AFTER 2 DAYS Anaerobic Blood Culture - Preliminary NO GROWTH AFTER 2 DAYS 11/09/16 12:00 Aerobic Blood Culture - Preliminary Blood - Venous - Lab Draw NO GROWTH AFTER 2 DAYS Anaerobic Blood Culture - Preliminary NO GROWTH AFTER 2 DAYS 11/09/16 14:05 Clostridium difficile (PCR) - Final Stool / Feces 11/09/16 14:05 Shiga Toxin I & II - Final Stool / Feces 11/09/16 14:05 Stool Culture - Preliminary Other - Stool NORMAL ENTERIC MAYE 2 DAYS Med Orders - Current: Current Medications Acetaminophen (Tylenol) 650 mg PO Q4H PRN PRN Reason: Pain (Mild 1-3)/fever Albuterol/Ipratropium (Duoneb 3.0-0.5 Mg/3 Ml) 3 ml NEB Q4HR PRN PRN Reason: Shortness of Breath Atorvastatin Calcium (Lipitor) 40 mg PO DAILY [facility] Last Admin: 11/11/16 08:44 Dose: 40 mg Duloxetine HCl (Cymbalta) 30 mg PO DAILY [facility] Last Admin: 11/11/16 08:44 Dose: 30 mg Enoxaparin Sodium (Lovenox) 40 mg SUBCUT DAILY [facility] Last Admin: 11/11/16 08:44 Dose: 40 mg Furosemide (Lasix) 40 mg PO DAILY [facility] Last Admin: 11/11/16 10:01 Dose: 40 mg Ciprofloxacin/Dextrose 400 mg/ (Premix) 200 mls @ 200 mls/hr IV Q12HR [facility] Last Admin: 11/11/16 08:45 Dose: 200 mls/hr Metronidazole 500 mg/ Premix 100 mls @ 100 mls/hr IV Q8H [facility] Last Admin: 11/11/16 12:33 Dose: 100 mls/hr Insulin Aspart (Novolog) 0 unit SUBCUT QIDACANDBED [facility] PRN Reason: Protocol Last Admin: 11/11/16 12:32 Dose: 1 units Metformin HCl (Glucophage) 500 mg PO BIDMEALS [facility] Mometasone Furoate/Formoterol Fumar (Dulera 200-5 Mcg) 2 puff IH BID [facility] Last Admin: 11/11/16 08:44 Dose: 2 puff Morphine Sulfate (Morphine) 2 mg IVPUSH Q2H PRN PRN Reason: Pain (severe 7-10) Ondansetron HCl (Zofran) 4 mg IVPUSH Q6H PRN PRN Reason: Nausea/Vomiting Potassium Chloride (Klor-Con 10) 40 meq PO BIDMEALS [facility] Last Admin: 11/11/16 10:01 Dose: 40 meq Zolpidem Tartrate (Ambien) 5 mg PO BEDTIME PRN PRN Reason: Sleep Discontinued Medications Barium Sulfate (Readi-Cat 2) 900 ml PO ONETIME ONE Stop: 11/09/16 12:02 Last Admin: 11/09/16 12:29 Dose: 900 ml Potassium Chloride 10 meq/ (Premix) 100 mls @ 100 mls/hr IV Q1H [facility] Stop: 11/09/16 16:29 Last Admin: 11/09/16 18:02 Dose: 100 mls/hr Sodium Chloride (Normal Saline) 1,000 mls @ 125 mls/hr IV ASDIRECTED [facility] Stop: 11/10/16 11:31 Last Admin: 11/10/16 06:41 Dose: 125 mls/hr Magnesium Sulfate 2 gm/ Premix 50 mls @ 25 mls/hr IV ONETIME ONE Stop: 11/10/16 10:33 Last Infusion: 11/10/16 17:57 Dose: Infused Sodium Chloride (Normal Saline) 1,000 mls @ 75 mls/hr IV ASDIRECTED [facility] Stop: 11/11/16 10:46 Last Infusion: 11/11/16 12:45 Dose: Infused Iopamidol (Isovue-300 (61%)) 100 ml IVPUSH ONETIME ONE Stop: 11/09/16 12:02 Last Admin: 11/09/16 13:52 Dose: 100 ml Non-Formulary Medication (Tretinoin [Retin-A]) 1 squirt TOP ASDIRECTED [facility] Non-Formulary Medication (Triamcinolone Acetonide) 1 squirt TOP ASDIRECTED [facility] Potassium Chloride (Klor-Con 10) 40 meq PO BIDMEALS [facility] Stop: 11/09/16 18:01 Last Admin: 11/09/16 18:04 Dose: 40 meq Potassium Chloride (Klor-Con 10) 40 meq PO ONETIME ONE Stop: 11/10/16 00:02 Last Admin: 11/10/16 00:41 Dose: 40 meq - Exam General: Alert, Oriented, Cooperative, No Acute Distress. No: Mild Distress, Moderate Distress, Severe Distress, Sedated, Lethargic, Obtunded HEENT: Pupils Equal, Pupils Reactive, EOMI, Mucous Membr. Moist/[place] Neck: Supple, Trachea Midline, No JVD Lungs: Clear to Auscultation, Normal Respiratory Effort Cardiovascular: Regular Rate, Regular Rhythm GI/Abdominal Exam: Normal Bowel Sounds, Soft, Non-Tender, No Organomegaly, No Distention, No Abnormal Bruit, No Mass. No: Distended, Guarding, Rigid, Rebound , Tender (Female) Exam: Deferred Back Exam: Normal Inspection, Full Range of Motion Extremities: Normal Inspection, Normal Range of Motion, Non-Tender, No Pedal Edema, Normal Capillary Refill Skin: Warm, Dry, Intact Neurological: No New Focal Deficit Psy/Mental Status: Alert, Normal Affect, Normal Mood - Problem List & Annotations (1) Hypokalemia SNOMED Code(s): 73574946 Code(s): E87.6 - HYPOKALEMIA Status: Acute Priority: High Current Visit : Yes (2) Diverticulitis SNOMED Code(s): 345960939 Code(s): K57.92 - DVTRCLI OF INTEST, PART UNSP, W/O PERF OR ABSCESS W/O BLEED Status: Acute Priority: High Current Visit: Yes (3) COPD (chronic obstructive pulmonary disease) SNOMED Code(s): 04137990 Code(s): J44.9 - CHRONIC OBSTRUCTIVE PULMONARY DISEASE, UNSPECIFIED Status : Chronic Current Visit: Yes (4) Morbid obesity with BMI of 45.0-49.9, adult SNOMED Code(s): 371466841 Code(s): E66.01 - MORBID (SEVERE) OBESITY DUE TO EXCESS CALORIES; Z68.42 - BODY MASS INDEX (BMI) 45.0-49.9, ADULT Status: Chronic Current Visit: Yes (5) Lower extremity edema SNOMED Code(s): 139406941 Code(s): R60.0 - LOCALIZED EDEMA Status: Chronic Current Visit: Yes - Problem List Review Problem List Initiated/Reviewed/Updated: Yes - My Orders Last 24 Hours: My Active Orders 11/11/16 09:30 Furosemide [Lasix] 40 mg PO DAILY 11/11/16 09:45 Potassium Chloride [Klor-Con 10] 40 meq PO BIDMEALS 11/11/16 18:00 metFORMIN [Glucophage] 500 mg PO BIDMEALS 11/11/16 Lunch Advance Diet Instructions [DIET] 11/12/16 05:11 BASIC METABOLIC PANEL,BMP [CHEM] AM CBC WITH AUTO DIFF [HEME] AM CRP [C-REACTIVE PROTEIN] [CHEM] AM - Plan Plan:: Assessment and plan Diverticulitis -CT abdomen and pelvis with contrast reported "possible mild diffuse inflammatory changes of the descending and sigmoid colon. The findings may represent infectious colitis including pseudomembranous colitis or possible inflammatory bowel disease. Hepatomegaly with diffuse fatty infiltration." -C. difficile came back positive today -stool cultures and shiga toxin 1 and 2 are negative -We'll stop ciprofloxacin and continue with Flagyl IV 500 mg every 8 hours Morphine for pain as needed -Start advising diet from clear liquid diet to diabetic diet -She was advised to follow-up with GI for possible colonoscopy after being discharged Hypokalemia, most likely from GI loss She takes potassium chloride 40 mEq twice a day at home with the Lasix and metolazone. She takes the Lasix and metolazone for extremities edema Potassium on admission 2.8. EKG did not show abnormal acute findings She received potassium chloride 40 mEq IV and total of 120 mEq orally -Potassium is 3.3 this morning -Restart home potassium chloride 40 mEq by mouth twice a day. -check potassium tomorrow Upper and lower extremities edema Restart Lasix 40 mg by mouth daily Give Lasix 40 mg IV once on the top of the oral dose Dehydration, from GI loss Resolved. Received IV fluid and her Lasix and metolazone were on hold. Stop IV fluid and restart Lasix Hypomagnesemia Replaced History of COPD, no exacerbation Continue home medication of Symbicort and DuoNeb Diabetes mellitus type 2 -resume metformin Sliding scale insulin, low-dose Lovenox for DVT prophylaxis She is full code
[2016-11-11] MEDS: metFORMIN 500 MG Tab PO SCH (17:02)
[2016-11-12] MEDS: metroNIDAZOLE/Normal Saline 500 MG in Premix Bag 100 BAG IV SCH ×2 (04:24→12:40)
[2016-11-12 07:08] LABS: CHLORIDE,CL 103 mmol/L (101-111); SODIUM,NA 141 mmol/L (135-145)
[2016-11-12] MEDS: metFORMIN 500 MG Tab PO SCH (09:16)
[2016-11-12] MEDS: Furosemide 40 MG Tab PO SCH (09:16)
[2016-11-12] MEDS: DULoxetine 30 MG Cap PO SCH (09:16)
[2016-11-12] MEDS: atorvaSTATin 20 MG Tab PO SCH (09:17)
[2016-11-12] MEDS: Potassium Chloride 10 MEQ Tab.ER PO SCH (09:17)
[2016-11-12] MEDS: Insulin Aspart 100 Units/ML 3 ML Pen SUBCUT SCH ×2 (09:19→12:41)
[2016-11-12] MEDS: Formoterol/Mometasone 200-5 MCG 8.8 GM Inhaler IH SCH (09:19)
[2016-11-12] MEDS: Enoxaparin 40 MG/0.4 ML Syringe SUBCUT SCH (09:21)
[2016-11-12] MEDS ORDERED: Sodium Chloride 0.9% 10 ML Syringe FLUSH PRN (09:24)
--- NOTE | 2016-11-12 12:36 | PCM.DCSUM1 ---
Discharge Summary - Hospital Course Free Text/Narrative:: This is a 50-year-old female with a past medical history of obesity, obstructive sleep apnea, hypertension, COPD, lower extremities edema, anxiety disorder, acne presented to Hospital as a direct admission from [facility] for low potassium. Patient stated that for the last 1 month she has been having left lower quadrant intermittent pain, diarrhea, nausea, vomiting, feeling sluggish and tired and not getting better. In hospital she had CT that was consistent with Entrocolitis and stool was positive for C. diff. Initially she was on Cipro and flagyl, after the report for C, diff positive, Cipro was stopped and she was continued on IV flagyl. She will be going home with oral Flagyl and follow with PMD in a week. . HPI Initial Comments: This is a 50-year-old female with a past medical history of obesity, obstructive sleep apnea, hypertension, COPD, lower extremities edema, anxiety disorder, acne presented to Hospital as a direct admission from [facility] for low potassium. Patient stated that for the last 1 month she has been having left lower quadrant intermittent pain, diarrhea, nausea, vomiting, feeling sluggish and tired and not getting better. On September, she was seen in the clinic and had CT scan of abdomen and pelvis reported "diverticulosis and bowel wall thickening along the descending colon. Mild pericolonic inflammatory changes. No evidence of perforation or abscess formation or bleeding. Findings consistent with acute diverticulitis." At that time she was given Levaquin for 7 days. Patient symptoms continues and her diarrhea was on and off but since last Monday her diarrhea has been consistent. She has 3 watery episodes of diarrhea every day. She reported fever and chills. Recorded temperature at home 99.4. She denies blood or mucus in the stool. She denies history of traveling overseas or having antibiotic in the last few months prior to her Levaquin. She said she is maintaining good oral fluid intake. Patient denies chest pain, worsening of her baseline shortness breaths, increase of lower extremities edema , dysuria, urinary frequency, unilateral weakness/numbness/tingling, rash, headache, upper respiratory symptoms, any other symptoms or concerns. Patient denies personal history of similar problem in the past. She denies personal and family history of colon cancer or intra-abdominal cancer peptic ulcer, or Crohn or ulcerative colitis disease. She denies history of C. difficile. She admitted history of cholecystectomy 2 years ago. She is c.diff positive and a repeat CT consistent with Entrocolitis. she is now on Flagyl and no more diarrhea, Tolerating diet well and will be going home on oral Flagyl, she will follow with PMD in a week time . - Discharge Data Discharge Date: 11/12/16 Discharge Disposition: Home, Self-Care 01 Condition: Good - Patient Instructions Diet: Usual Diet as Tolerated Activity: As Tolerated Driving: May Drive Today Showering/Bathing: May Shower Other/Special Instructions: This is a 50-year-old female with a past medical history of obesity, obstructive sleep apnea, hypertension, COPD, lower extremities edema, anxiety disorder, acne presented to Hospital as a direct admission from [facility] for low potassium. Patient stated that for the last 1 month she has been having left lower quadrant intermittent pain, diarrhea, nausea, vomiting, feeling sluggish and tired and not getting better. In hospital she had CT that was consistent with Entrocolitis and stool was positive for C. diff. Initially she was on Cipro and flagyl, after the report for C, diff positive, Cipro was stopped and she was continued on IV flagyl. She will be going home with oral Flagyl and follow with PMD in a week. Now has no more diarrhea nd tolerating diet. - Discharge Plan Prescriptions/Med Rec: metroNIDAZOLE [Flagyl] 500 mg PO Q8H 14 Days #45 tablet Home Medications: Home Meds Budesonide/Formoterol [Symbicort 160-4.5 MCG] 2 puff INH DAILY 05/06/14 [History ] DULoxetine [Cymbalta] 30 mg PO DAILY 11/08/16 [History] Furosemide [Lasix] 40 mg PO DAILY 11/08/16 [History] Metolazone 2.5 mg PO DAILY 11/08/16 [History] Potassium Chloride 40 meq PO BID 11/08/16 [History] Tretinoin [Retin-A] 1 squirt TOP Q48H 11/08/16 [History] atorvaSTATin [Lipitor] 40 mg PO DAILY 11/08/16 [History] metFORMIN HCl [Metformin HCl] 500 mg PO BIDMEALS 11/08/16 [History] Ondansetron [Zofran] 4 mg PO Q6H PRN 11/09/16 [History] metroNIDAZOLE [Flagyl] 500 mg PO Q8H 14 Days #45 tablet 11/12/16 [Rx] - Discharge Summary/Plan Comment DC Time >30 min.: Yes Discharge Summary/Plan Comment: Assessment and plan Diverticulitis -CT abdomen and pelvis with contrast reported "possible mild diffuse inflammatory changes of the descending and sigmoid colon. The findings may represent infectious colitis including pseudomembranous colitis or possible inflammatory bowel disease. Hepatomegaly with diffuse fatty infiltration." -C. difficile came back positive -stool cultures and shiga toxin 1 and 2 are negative -Will continue with Flagyl 500 mg PO every 8 hours x 2 weeks -Continue regular diabetic diet -She was advised to follow-up with GI for possible colonoscopy after being discharged and follow with PMD in a week Hypokalemia, most likely from GI loss She takes potassium chloride 40 mEq twice a day at home with the Lasix and metolazone. - Potassium is 3.5 this morning -Will continue home potassium chloride 40 mEq by mouth twice a day. -check potassium in 2-3 days and follow with PMD lower extremities edema -Continue Lasix 40 mg by mouth daily and Metolazone Hypomagnesemia Replaced snf acceptable History of COPD, no exacerbation Continue home medication of Symbicort and DuoNeb Diabetes mellitus type 2 -resume metformin and follow with PMD - General Info Date of Service: 11/12/16 Admission Dx/Problem (Free Text: Admission Diagnosis/Problem Admission Diagnosis/Problem Entrocolotis/C.Diff colitis Subjective Update: Patient stated that she is feeling better. No more abdominal pain and diarrhea. She denies nausea, vomiting, abdominal pain, fever, chills, chest pain, shortness breath, any other symptoms or concerns. Functional Status: Reports: Pain Controlled, Tolerating Diet, Ambulating, Urinating - Review of Systems General: Denies: Fever, Chills HEENT: Denies: Headaches, Sinus Congestion, Sore Throat, Visual Changes Pulmonary: Denies: Shortness of Breath, Cough, Sputum, Wheezing Cardiovascular: Denies: Chest Pain, Dyspnea on Exertion, Lightheadedness Gastrointestinal: Denies: Abdominal Pain, Diarrhea, Melena, Nausea, Vomiting Genitourinary: Denies: Dysuria, Frequency, Burning, Urgency Musculoskeletal: Denies: Neck Pain, Joint Pain, Joint Swelling Skin: Denies: Cyanosis, Bruising, Pruritis, Rash Neurological: Denies: Confusion, Tingling, Tremors Psychiatric: Reports: No Symptoms - Patient Data Vitals - Most Recent: Last Vital Signs Temp 36.6 C 11/12/16 07:00 Pulse 86 11/12/16 07:00 Resp 20 11/12/16 07:00 BP 124/48 L 11/12/16 07:00 Pulse Ox 97 11/12/16 07:00 Weight - Most Recent: 111.402 kg I&O - Last 24 hours: Intake & Output 11/11/16 11/12/16 11/12/16 22:59 06:59 14:59 Intake Total 1600 545 Output Total 900 900 Balance 700 -355 Lab Results - Last 24 hrs: Laboratory Results - last 24 hr 11/11/16 11/11/16 11/11/16 Range/Units 10:48 16:42 20:59 WBC (5.0-10.0) 10^3/uL RBC (4.2-5.4) 10^6/uL Hgb (12.0-16.0) g/dL Hct (37.0-47.0) % MCV (80-100) fL MCH (27.0-34.0) pg MCHC (33.0-35.0) g/dL Plt Count (150-450) 10^3/uL Neut % (Auto) (42.2-75.2) % Lymph % (Auto) (20.5-50.1) % [place] % (Auto) (2-8) % Eos % (Auto) (1.0-3.0) % Baso % (Auto) (0.0-1.0) % Sodium (135-145) mmol/L Potassium (3.6-5.0) mmol/L Chloride (101-111) mmol/L Carbon Dioxide (21.0-31.0) mmol/L Anion Gap BUN (7-18) mg/dL Creatinine (0.6-1.3) mg/dL Est Cr Clr Drug Dosing mL/min Estimated GFR (MDRD) Glucose (74-105) mg/dL POC Glucose 196 H 168 H 172 H (70-105) mg/dl Calcium (8.4-10.2) mg/dl Magnesium (1.8-2.5) mg/dL C-Reactive Protein (0.0-1.3) mg/dL 11/12/16 11/12/16 11/12/16 Range/Units 06:35 06:35 06:35 WBC 5.2 (5.0-10.0) 10^3/uL RBC 3.93 L (4.2-5.4) 10^6/uL Hgb 12.3 (12.0-16.0) g/dL Hct 36.9 L (37.0-47.0) % MCV 93.9 (80-100) fL MCH 31.3 (27.0-34.0) pg MCHC 33.3 (33.0-35.0) g/dL Plt Count 241 (150-450) 10^3/uL Neut % (Auto) 57.5 (42.2-75.2) % Lymph % (Auto) 30.5 (20.5-50.1) % [place] % (Auto) 9.5 H (2-8) % Eos % (Auto) 2.1 (1.0-3.0) % Baso % (Auto) 0.4 (0.0-1.0) % Sodium 141 (135-145) mmol/L Potassium 3.5 L (3.6-5.0) mmol/L Chloride 103 (101-111) mmol/L Carbon Dioxide 28.0 (21.0-31.0) mmol/L Anion Gap 13.5 BUN 10 (7-18) mg/dL Creatinine 0.8 (0.6-1.3) mg/dL Est Cr Clr Drug Dosing 62.07 mL/min Estimated GFR (MDRD) > 60 Glucose 171 H (74-105) mg/dL POC Glucose (70-105) mg/dl Calcium 8.3 L (8.4-10.2) mg/dl Magnesium 1.8 (1.8-2.5) mg/dL C-Reactive Protein 0.6 (0.0-1.3) mg/dL 11/12/16 11/12/16 Range/Units 08:13 12:01 WBC (5.0-10.0) 10^3/uL RBC (4.2-5.4) 10^6/uL Hgb (12.0-16.0) g/dL Hct (37.0-47.0) % MCV (80-100) fL MCH (27.0-34.0) pg MCHC (33.0-35.0) g/dL Plt Count (150-450) 10^3/uL Neut % (Auto) (42.2-75.2) % Lymph % (Auto) (20.5-50.1) % [place] % (Auto) (2-8) % Eos % (Auto) (1.0-3.0) % Baso % (Auto) (0.0-1.0) % Sodium (135-145) mmol/L Potassium (3.6-5.0) mmol/L Chloride (101-111) mmol/L Carbon Dioxide (21.0-31.0) mmol/L Anion Gap BUN (7-18) mg/dL Creatinine (0.6-1.3) mg/dL Est Cr Clr Drug Dosing mL/min Estimated GFR (MDRD) Glucose (74-105) mg/dL POC Glucose 172 H 165 H (70-105) mg/dl Calcium (8.4-10.2) mg/dl Magnesium (1.8-2.5) mg/dL C-Reactive Protein (0.0-1.3) mg/dL ELSY Results - Last 24 hrs: Microbiology 11/09/16 12:08 Aerobic Blood Culture - Preliminary Blood - Venous NO GROWTH AFTER 3 DAYS Anaerobic Blood Culture - Preliminary NO GROWTH AFTER 3 DAYS 11/09/16 12:00 Aerobic Blood Culture - Preliminary Blood - Venous - Lab Draw NO GROWTH AFTER 3 DAYS Anaerobic Blood Culture - Preliminary NO GROWTH AFTER 3 DAYS 11/09/16 14:05 Stool Culture - Final Other - Stool NORMAL ENTERIC MAYE. NO SALMONELLA, SHIGELLA, CAMPYLOBACTER OR E.COLI O157 ISOLATED. 11/09/16 14:05 Clostridium difficile (PCR) - Final Stool / Feces 11/09/16 14:05 Shiga Toxin I & II - Final Stool / Feces Med Orders - Current: Current Medications Acetaminophen (Tylenol) 650 mg PO Q4H PRN PRN Reason: Pain (Mild 1-3)/fever Albuterol/Ipratropium (Duoneb 3.0-0.5 Mg/3 Ml) 3 ml NEB Q4HR PRN PRN Reason: Shortness of Breath Atorvastatin Calcium (Lipitor) 40 mg PO DAILY [facility] Last Admin: 11/12/16 09:17 Dose: 40 mg Duloxetine HCl (Cymbalta) 30 mg PO DAILY [facility] Last Admin: 11/12/16 09:16 Dose: 30 mg Enoxaparin Sodium (Lovenox) 40 mg SUBCUT DAILY [facility] Last Admin: 11/12/16 09:21 Dose: 40 mg Furosemide (Lasix) 40 mg PO DAILY [facility] Last Admin: 11/12/16 09:16 Dose: 40 mg Metronidazole 500 mg/ Premix 100 mls @ 100 mls/hr IV Q8H [facility] Last Infusion: 11/12/16 05:34 Dose: Infused Insulin Aspart (Novolog) 0 unit SUBCUT QIDACANDBED [facility] PRN Reason: Protocol Last Admin: 11/12/16 09:19 Dose: 1 units Metformin HCl (Glucophage) 500 mg PO BIDMEALS [facility] Last Admin: 11/12/16 09:16 Dose: 500 mg Mometasone Furoate/Formoterol Fumar (Dulera 200-5 Mcg) 2 puff IH BID [facility] Last Admin: 11/12/16 09:19 Dose: 2 puff Morphine Sulfate (Morphine) 2 mg IVPUSH Q2H PRN PRN Reason: Pain (severe 7-10) Ondansetron HCl (Zofran) 4 mg IVPUSH Q6H PRN PRN Reason: Nausea/Vomiting Potassium Chloride (Klor-Con 10) 40 meq PO BIDMEALS [facility] Last Admin: 11/12/16 09:17 Dose: 40 meq Sodium Chloride (Saline Flush) 10 ml FLUSH ASDIRECTED PRN PRN Reason: Keep Vein Open Zolpidem Tartrate (Ambien) 5 mg PO BEDTIME PRN PRN Reason: Sleep Discontinued Medications Barium Sulfate (Readi-Cat 2) 900 ml PO ONETIME ONE Stop: 11/09/16 12:02 Last Admin: 11/09/16 12:29 Dose: 900 ml Furosemide (Lasix) 40 mg IVPUSH NOW ONE Stop: 11/11/16 14:33 Last Admin: 11/11/16 15:15 Dose: 40 mg Potassium Chloride 10 meq/ (Premix) 100 mls @ 100 mls/hr IV Q1H [facility] Stop: 11/09/16 16:29 Last Admin: 11/09/16 18:02 Dose: 100 mls/hr Sodium Chloride (Normal Saline) 1,000 mls @ 125 mls/hr IV ASDIRECTED [facility] Stop: 11/10/16 11:31 Last Admin: 11/10/16 06:41 Dose: 125 mls/hr Ciprofloxacin/Dextrose 400 mg/ (Premix) 200 mls @ 200 mls/hr IV Q12HR [facility] Last Admin: 11/11/16 08:45 Dose: 200 mls/hr Magnesium Sulfate 2 gm/ Premix 50 mls @ 25 mls/hr IV ONETIME ONE Stop: 11/10/16 10:33 Last Infusion: 11/10/16 17:57 Dose: Infused Sodium Chloride (Normal Saline) 1,000 mls @ 75 mls/hr IV ASDIRECTED [facility] Stop: 11/11/16 10:46 Last Infusion: 11/11/16 12:45 Dose: Infused Iopamidol (Isovue-300 (61%)) 100 ml IVPUSH ONETIME ONE Stop: 11/09/16 12:02 Last Admin: 11/09/16 13:52 Dose: 100 ml Non-Formulary Medication (Tretinoin [Retin-A]) 1 squirt TOP ASDIRECTED [facility] Non-Formulary Medication (Triamcinolone Acetonide) 1 squirt TOP ASDIRECTED [facility] Potassium Chloride (Klor-Con 10) 40 meq PO BIDMEALS [facility] Stop: 11/09/16 18:01 Last Admin: 11/09/16 18:04 Dose: 40 meq Potassium Chloride (Klor-Con 10) 40 meq PO ONETIME ONE Stop: 11/10/16 00:02 Last Admin: 11/10/16 00:41 Dose: 40 meq Potassium Chloride (Klor-Con 10) 20 meq PO ONETIME ONE Stop: 11/11/16 14:33 Last Admin: 11/11/16 15:15 Dose: 20 meq - Exam Quality Assessment: Denies: Supplemental Oxygen, Urine Catheter, DVT Prophylaxis General: Reports: Alert, Oriented, Cooperative, No Acute Distress HEENT: Reports: Pupils Equal, EOMI, Mucous Membr. Moist/[place] Neck: Reports: Supple, No Thyromegaly. Denies: Lymphadenopathy Lungs: Reports: Clear to Auscultation, Normal Respiratory Effort Cardiovascular: Reports: Regular Rate, Regular Rhythm, No Murmurs GI/Abdominal Exam: Normal Bowel Sounds, Soft, Non-Tender, No Distention. No: Guarding, Rigid, Rebound (Female) Exam: Deferred Rectal (Female) Exam: Deferred Back Exam: Reports: Normal Inspection, Full Range of Motion Extremities: Normal Inspection, No Pedal Edema Skin: Reports: Warm, Dry, Intact Neurological: Reports: No New Focal Deficit Psy/Mental Status: Reports: Alert, Normal Affect, Normal Mood *Q Meaningful Use (DIS) - VTE *Q VTE Criteria *Q: - Stroke *Q Stroke Criteria *Q: - AMI *Q AMI Criteria *Q:
--- NOTE | 2016-11-12 12:36 | PCM.PN ---
- Patient Data Vitals - Most Recent: Last Vital Signs Temp 36.6 C 11/12/16 07:00 Pulse 86 11/12/16 07:00 Resp 20 11/12/16 07:00 BP 124/48 L 11/12/16 07:00 Pulse Ox 97 11/12/16 07:00 Weight - Most Recent: 111.402 kg I&O - Last 24 Hours: Intake & Output 11/11/16 11/12/16 11/12/16 22:59 06:59 14:59 Intake Total 1600 545 Output Total 900 900 Balance 700 -355 Lab Results Last 24 Hours: Laboratory Results - last 24 hr 11/11/16 11/11/16 11/11/16 Range/Units 10:48 16:42 20:59 WBC (5.0-10.0) 10^3/uL RBC (4.2-5.4) 10^6/uL Hgb (12.0-16.0) g/dL Hct (37.0-47.0) % MCV (80-100) fL MCH (27.0-34.0) pg MCHC (33.0-35.0) g/dL Plt Count (150-450) 10^3/uL Neut % (Auto) (42.2-75.2) % Lymph % (Auto) (20.5-50.1) % [place] % (Auto) (2-8) % Eos % (Auto) (1.0-3.0) % Baso % (Auto) (0.0-1.0) % Sodium (135-145) mmol/L Potassium (3.6-5.0) mmol/L Chloride (101-111) mmol/L Carbon Dioxide (21.0-31.0) mmol/L Anion Gap BUN (7-18) mg/dL Creatinine (0.6-1.3) mg/dL Est Cr Clr Drug Dosing mL/min Estimated GFR (MDRD) Glucose (74-105) mg/dL POC Glucose 196 H 168 H 172 H (70-105) mg/dl Calcium (8.4-10.2) mg/dl Magnesium (1.8-2.5) mg/dL C-Reactive Protein (0.0-1.3) mg/dL 11/12/16 11/12/16 11/12/16 Range/Units 06:35 06:35 06:35 WBC 5.2 (5.0-10.0) 10^3/uL RBC 3.93 L (4.2-5.4) 10^6/uL Hgb 12.3 (12.0-16.0) g/dL Hct 36.9 L (37.0-47.0) % MCV 93.9 (80-100) fL MCH 31.3 (27.0-34.0) pg MCHC 33.3 (33.0-35.0) g/dL Plt Count 241 (150-450) 10^3/uL Neut % (Auto) 57.5 (42.2-75.2) % Lymph % (Auto) 30.5 (20.5-50.1) % [place] % (Auto) 9.5 H (2-8) % Eos % (Auto) 2.1 (1.0-3.0) % Baso % (Auto) 0.4 (0.0-1.0) % Sodium 141 (135-145) mmol/L Potassium 3.5 L (3.6-5.0) mmol/L Chloride 103 (101-111) mmol/L Carbon Dioxide 28.0 (21.0-31.0) mmol/L Anion Gap 13.5 BUN 10 (7-18) mg/dL Creatinine 0.8 (0.6-1.3) mg/dL Est Cr Clr Drug Dosing 62.07 mL/min Estimated GFR (MDRD) > 60 Glucose 171 H (74-105) mg/dL POC Glucose (70-105) mg/dl Calcium 8.3 L (8.4-10.2) mg/dl Magnesium 1.8 (1.8-2.5) mg/dL C-Reactive Protein 0.6 (0.0-1.3) mg/dL 17 11/12/16 Range/Units 08:13 12:01 WBC (5.0-10.0) 10^3/uL RBC (4.2-5.4) 10^6/uL Hgb (12.0-16.0) g/dL Hct (37.0-47.0) % MCV (80-100) fL MCH (27.0-34.0) pg MCHC (33.0-35.0) g/dL Plt Count (150-450) 10^3/uL Neut % (Auto) (42.2-75.2) % Lymph % (Auto) (20.5-50.1) % [place] % (Auto) (2-8) % Eos % (Auto) (1.0-3.0) % Baso % (Auto) (0.0-1.0) % Sodium (135-145) mmol/L Potassium (3.6-5.0) mmol/L Chloride (101-111) mmol/L Carbon Dioxide (21.0-31.0) mmol/L Anion Gap BUN (7-18) mg/dL Creatinine (0.6-1.3) mg/dL Est Cr Clr Drug Dosing mL/min Estimated GFR (MDRD) Glucose (74-105) mg/dL POC Glucose 172 H 165 H (70-105) mg/dl Calcium (8.4-10.2) mg/dl Magnesium (1.8-2.5) mg/dL C-Reactive Protein (0.0-1.3) mg/dL [facility] Results Last 24 Hours: Microbiology 11/09/16 12:08 Aerobic Blood Culture - Preliminary Blood - Venous NO GROWTH AFTER 3 DAYS Anaerobic Blood Culture - Preliminary NO GROWTH AFTER 3 DAYS 11/09/16 12:00 Aerobic Blood Culture - Preliminary Blood - Venous - Lab Draw NO GROWTH AFTER 3 DAYS Anaerobic Blood Culture - Preliminary NO GROWTH AFTER 3 DAYS 11/09/16 14:05 Stool Culture - Final Other - Stool NORMAL ENTERIC MAYE. NO SALMONELLA, SHIGELLA, CAMPYLOBACTER OR E.COLI O157 ISOLATED. 11/09/16 14:05 Clostridium difficile (PCR) - Final Stool / Feces 11/09/16 14:05 Shiga Toxin I & II - Final Stool / Feces Med Orders - Current: Current Medications Acetaminophen (Tylenol) 650 mg PO Q4H PRN PRN Reason: Pain (Mild 1-3)/fever Albuterol/Ipratropium (Duoneb 3.0-0.5 Mg/3 Ml) 3 ml NEB Q4HR PRN PRN Reason: Shortness of Breath Atorvastatin Calcium (Lipitor) 40 mg PO DAILY [facility] Last Admin: 11/12/16 09:17 Dose: 40 mg Duloxetine HCl (Cymbalta) 30 mg PO DAILY [facility] Last Admin: 11/12/16 09:16 Dose: 30 mg Enoxaparin Sodium (Lovenox) 40 mg SUBCUT DAILY [facility] Last Admin: 11/12/16 09:21 Dose: 40 mg Furosemide (Lasix) 40 mg PO DAILY [facility] Last Admin: 11/12/16 09:16 Dose: 40 mg Metronidazole 500 mg/ Premix 100 mls @ 100 mls/hr IV Q8H [facility] Last Infusion: 11/12/16 05:34 Dose: Infused Insulin Aspart (Novolog) 0 unit SUBCUT QIDACANDBED [facility] PRN Reason: Protocol Last Admin: 11/12/16 09:19 Dose: 1 units Metformin HCl (Glucophage) 500 mg PO BIDMEALS [facility] Last Admin: 11/12/16 09:16 Dose: 500 mg Mometasone Furoate/Formoterol Fumar (Dulera 200-5 Mcg) 2 puff IH BID [facility] Last Admin: 11/12/16 09:19 Dose: 2 puff Morphine Sulfate (Morphine) 2 mg IVPUSH Q2H PRN PRN Reason: Pain (severe 7-10) Ondansetron HCl (Zofran) 4 mg IVPUSH Q6H PRN PRN Reason: Nausea/Vomiting Potassium Chloride (Klor-Con 10) 40 meq PO BIDMEALS [facility] Last Admin: 11/12/16 09:17 Dose: 40 meq Sodium Chloride (Saline Flush) 10 ml FLUSH ASDIRECTED PRN PRN Reason: Keep Vein Open Zolpidem Tartrate (Ambien) 5 mg PO BEDTIME PRN PRN Reason: Sleep Discontinued Medications Barium Sulfate (Readi-Cat 2) 900 ml PO ONETIME ONE Stop: 11/09/16 12:02 Last Admin: 11/09/16 12:29 Dose: 900 ml Furosemide (Lasix) 40 mg IVPUSH NOW ONE Stop: 11/11/16 14:33 Last Admin: 11/11/16 15:15 Dose: 40 mg Potassium Chloride 10 meq/ (Premix) 100 mls @ 100 mls/hr IV Q1H [facility] Stop: 11/09/16 16:29 Last Admin: 11/09/16 18:02 Dose: 100 mls/hr Sodium Chloride (Normal Saline) 1,000 mls @ 125 mls/hr IV ASDIRECTED [facility] Stop: 11/10/16 11:31 Last Admin: 11/10/16 06:41 Dose: 125 mls/hr Ciprofloxacin/Dextrose 400 mg/ (Premix) 200 mls @ 200 mls/hr IV Q12HR [facility] Last Admin: 11/11/16 08:45 Dose: 200 mls/hr Magnesium Sulfate 2 gm/ Premix 50 mls @ 25 mls/hr IV ONETIME ONE Stop: 11/10/16 10:33 Last Infusion: 11/10/16 17:57 Dose: Infused Sodium Chloride (Normal Saline) 1,000 mls @ 75 mls/hr IV ASDIRECTED [facility] Stop: 11/11/16 10:46 Last Infusion: 11/11/16 12:45 Dose: Infused Iopamidol (Isovue-300 (61%)) 100 ml IVPUSH ONETIME ONE Stop: 11/09/16 12:02 Last Admin: 11/09/16 13:52 Dose: 100 ml Non-Formulary Medication (Tretinoin [Retin-A]) 1 squirt TOP ASDIRECTED [facility] Non-Formulary Medication (Triamcinolone Acetonide) 1 squirt TOP ASDIRECTED [facility] Potassium Chloride (Klor-Con 10) 40 meq PO BIDMEALS [facility] Stop: 11/09/16 18:01 Last Admin: 11/09/16 18:04 Dose: 40 meq Potassium Chloride (Klor-Con 10) 40 meq PO ONETIME ONE Stop: 11/10/16 00:02 Last Admin: 11/10/16 00:41 Dose: 40 meq Potassium Chloride (Klor-Con 10) 20 meq PO ONETIME ONE Stop: 11/11/16 14:33 Last Admin: 11/11/16 15:15 Dose: 20 meq - My Orders Last 24 Hours: My Active Orders 11/12/16 09:24 Sodium Chloride 0.9% [Saline Flush] 10 ml FLUSH ASDIRECTED PRN - Plan Plan:: Assessment and plan Diverticulitis -CT abdomen and pelvis with contrast reported "possible mild diffuse inflammatory changes of the descending and sigmoid colon. The findings may represent infectious colitis including pseudomembranous colitis or possible inflammatory bowel disease. Hepatomegaly with diffuse fatty infiltration." -C. difficile came back positive today -stool cultures and shiga toxin 1 and 2 are negative -We'll stop ciprofloxacin and continue with Flagyl IV 500 mg every 8 hours Morphine for pain as needed -Start advising diet from clear liquid diet to diabetic diet -She was advised to follow-up with GI for possible colonoscopy after being discharged Hypokalemia, most likely from GI loss She takes potassium chloride 40 mEq twice a day at home with the Lasix and metolazone. She takes the Lasix and metolazone for extremities edema Potassium on admission 2.8. EKG did not show abnormal acute findings She received potassium chloride 40 mEq IV and total of 120 mEq orally -Potassium is 3.3 this morning -Restart home potassium chloride 40 mEq by mouth twice a day. -check potassium tomorrow Upper and lower extremities edema Restart Lasix 40 mg by mouth daily Give Lasix 40 mg IV once on the top of the oral dose Dehydration, from GI loss Resolved. Received IV fluid and her Lasix and metolazone were on hold. Stop IV fluid and restart Lasix Hypomagnesemia Replaced History of COPD, no exacerbation Continue home medication of Symbicort and DuoNeb Diabetes mellitus type 2 -resume metformin Sliding scale insulin, low-dose Lovenox for DVT prophylaxis She is full code
[2016-11-12 13:12] VITALS: BP 100/62
== END 2016-11-12 14:30 | disposition home or self-care (01) | DRG 248 ==
LOC: DL.MS 11:30 → EDSTATUS 11:51
PROVIDERS: ADMIT Family Medicine; ATTEND Family Medicine
DX: A04.7 Enterocolitis due to Clostridium difficile (principal); E87.6 Hypokalemia; J44.9 Chronic obstructive pulmonary disease, unspecified; E66.01 Morbid (severe) obesity due to excess calories; Z68.42 Body mass index [BMI] 45.0-49.9, adult; R60.0 Localized edema; E86.0 Dehydration; E11.9 Type 2 diabetes mellitus without complications; Z79.84 Long term (current) use of oral hypoglycemic drugs; E83.42 Hypomagnesemia; G47.33 Obstructive sleep apnea (adult) (pediatric); I10 Essential (primary) hypertension; F41.9 Anxiety disorder, unspecified; Z88.0 Allergy status to penicillin; Z91.09 Other allergy status, other than to drugs and biological substances; Z79.899 Other long term (current) drug therapy; Z87.891 Personal history of nicotine dependence
CPT/HCPCS: 36415; 74177; 80048; 80053; 82962; 83735; 84100; 84132; 85025; 86140; 87040; 87045; 87046; 87493; 87899; A9270-GY; J0744; J1650; J1815-GY; J1940; J3475; J3480; J7030; J7050; Q9967

== ENCOUNTER 2016-11-16 18:17 | Observation (INO) | payer BC ==
[2016-11-16] MEDS ORDERED: Ondansetron 4 MG/2 ML SDV IVPUSH PRN (19:19)
[2016-11-16] MEDS ORDERED: Ondansetron 4 MG Tab.DIS PO PRN (19:19)
[2016-11-16] MEDS ORDERED: Potassium Chloride 10 MEQ Tab.ER PO ONE ×3 (19:24→23:00)
[2016-11-16] MEDS ORDERED: TRETINOIN TOP SCH (19:30)
[2016-11-16] MEDS ORDERED: Albuterol 6.7 GM Inhaler INH PRN (19:42)
[2016-11-16] MEDS: Sodium Chloride 0.9% with KCl 1,000 ML IV SCH (19:57)
[2016-11-16] MEDS ORDERED: Potassium Chloride 20 MEQ in Premix Bag 1 BAG IV ONE (21:04)
[2016-11-16] MEDS: METRONIDAZOLE 500 MG PO SCH (21:51)
--- NOTE | 2016-11-16 23:16 | HP ---
HISTORY OF PRESENT ILLNESS: Ms. Supriya Dodson is a 50-year-old female with medical history of sleep apnea, hypertension, COPD, anxiety. The patient recently was at their hospital because of diverticulitis, treated with antibiotics. She developed diarrhea and was also diagnosed with C. difficile colitis. She was discharged on oral Flagyl. She came back to the clinic today and had repeat labs. Her serum potassium was found to be low, down to 2.8. She feels nausea, has not vomited. Continues to have diarrhea, but frequency has improved. Had two bouts of diarrhea yesterday and two today. Stool is becoming more formed over time. Denies abdominal pain. She feels weak. No fever, chills, or rigors. No cough or wheezing. No headache or blurring of vision. No dysuria or frequency of micturition. REVIEW OF SYSTEMS: A 10-point review of system was performed including constitutional, cardiac, respiratory, gastrointestinal, genitourinary system. No other pertinent findings except as noted above. PAST MEDICAL HISTORY: 1. Hypertension. 2. COPD. 3. Diverticulosis. 4. Diabetes mellitus type 2, which the patient referred to as borderline diabetes. 5. Emphysema. SOCIAL HISTORY: She was a former smoker. No longer does so. No alcohol use. FAMILY HISTORY: Reviewed and considered noncontributory. CURRENT MEDICATIONS: Reviewed. 1. Symbicort. 2. DuoNeb. 3. Cymbalta. 4. Furosemide. 5. Metolazone. 6. Zofran. 7. Metformin. 8. Lipitor. OBJECTIVE: General: The patient is alert, oriented to place, time, and person. Head: Atraumatic and normocephalic. Ear, Nose, and Throat: Unremarkable. Neck: Supple. Chest: Clear to auscultation. CVS: Regular rate and rhythm. Abdomen: Soft, nontender. Extremities: No pedal edema. No finger clubbing. Skin: No rash. Neuro: Grossly nonfocal. Vital signs: Reviewed. LABORATORY DATA: Potassium is 2.8. ASSESSMENT: 1. Severe hypokalemia. This is due to multiple factors. The patient is having frequent diarrhea. She is on two diuretics, metolazone and Lasix. 2. Clostridium difficile colitis, on treatment. The patient has been on Flagyl. Still having some diarrhea. 3. Recent diverticulitis. It was treated with antibiotics. Antibiotics have been discontinued. 4. Nausea, possibly due to Flagyl. 5. Obstructive sleep apnea. PLAN: 1. Admit the patient to medical floor. 2. Place the patient on telemetry. 3. Obtain serum potassium every 6 hours. 4. Intravenous fluid with potassium chloride 40 mEq. 5. Give oral potassium now. 6. Hold metolazone. I am not sure why the patient is on metolazone. I think this medication should be discontinued completely. 7. I will hold Lasix for now. Chart reviewed. Discussed with her primary care provider. [facility] /[id number]
[2016-11-17] MEDS: METRONIDAZOLE 500 MG PO SCH (05:59)
[2016-11-17] MEDS ORDERED: BUDESONIDE INH SCH (09:00)
[2016-11-17] MEDS ORDERED: DULoxetine 30 MG Cap PO SCH (09:00)
[2016-11-17] MEDS ORDERED: Enoxaparin 40 MG/0.4 ML Syringe SUBCUT SCH (09:00)
[2016-11-17] MEDS ORDERED: atorvaSTATin 20 MG Tab PO SCH (09:00)
[2016-11-17] MEDS ORDERED: FORMOTEROL FUMARATE INH SCH (09:00)
[2016-11-17] MEDS: Sodium Chloride 0.9% with KCl 1,000 ML IV SCH (09:09)
--- NOTE | 2016-11-17 09:58 | PCM.DCSUM1 ---
Discharge Summary - Hospital Course Free Text/Narrative:: 50-year-old lady with a history of lower extremity edema who has been on metolazone and Lasix. She was taking 40 mEQ potassium supplement twice a day The patient was admitted with diarrhea and was diagnosed with Clostridium difficile colitis. She was discharged on Flagyl. She continued her potassium supplement. She feels that the diarrhea has been actually improving since discharge. In the clinic setting she was noted to have a severe hypokalemia with potassium of 2.3 on admission The patient was admitted For the hypokalemia she received IV and oral replacement doses We discussed the reason for the hypokalemia is likely losses with diarrhea, diuretics. With the diarrhea she might not have absorbed the potassium oral replacement well Discussed that she needs continued potassium and magnesium supplement today We discussed to consider decreasing the diuretics and use compression stockings for lower extremity edema. At this point the patient wanted to be transferred to [facility] for continued medical care We discussed our recommendation that she needs continuous cardiac monitoring and IV potassium supplement. Recommended transfer by ambulance We also discussed the etiology and management of C. difficile colitis. Recommended to add probiotics, with talked about vancomycin versus Flagyl. At this point it appears that symptoms are better so the plan was to continue on Flagyl. The patient has a history of diabetes. Renal function remained stable, metformin can be continued. The patient will be transferred to [facility] for further treatment. - Discharge Data Discharge Date: 11/17/16 Discharge Disposition: DC/Tfer to Acute Hospital 02 Condition: Fair - Discharge Diagnosis/Problem(s) (1) Hypokalemia SNOMED Code(s): 75056510 ICD Code: E87.6 - HYPOKALEMIA Status: Acute Current Visit: Yes - Patient Instructions Diet: Heart Healthy Diet Diet, Other: avoid milk, eat yoghurt with live clive Activity: As Tolerated - Discharge Plan Home Medications: Home Meds Budesonide/Formoterol [Symbicort 160-4.5 MCG] 2 puff INH DAILY 05/06/14 [History ] DULoxetine [Cymbalta] 30 mg PO DAILY 11/08/16 [History] Furosemide [Lasix] 40 mg PO BID 11/08/16 [History] Metolazone 2.5 mg PO DAILY 11/08/16 [History] Potassium Chloride 40 meq PO BID 11/08/16 [History] Tretinoin [Retin-A] 1 squirt TOP Q48H 11/08/16 [History] atorvaSTATin [Lipitor] 40 mg PO DAILY 11/08/16 [History] metFORMIN HCl [Metformin HCl] 500 mg PO BIDMEALS 11/08/16 [History] metroNIDAZOLE [Flagyl] 500 mg PO Q8H 14 Days #45 tablet 11/12/16 [Rx] Albuterol Sulfate [Proair Respiclick] 90 mcg IH ASDIRECTED PRN 11/16/16 [History ] Enoxaparin [Lovenox] 40 mg SUBCUT DAILY syringe 11/17/16 [Rx] Potassium Chloride [KCl 10 MEQ in Water 100 ML] 10 meq IV Q2H bag 11/17/16 [Rx] - Discharge Summary/Plan Comment DC Time >30 min.: Yes (obtaining acceptance or transfer - arranging tx.) - General Info Date of Service: 11/17/16 Admission Dx/Problem (Free Text: hypokalemia, c diff colitis Functional Status: Reports: Pain Controlled - Review of Systems General: Reports: Weakness (mild). Denies: Fever Pulmonary: Denies: Shortness of Breath Cardiovascular: Denies: Chest Pain Gastrointestinal: Reports: Abdominal Pain (cramping resolved), Diarrhea (2 BM yesterday) Skin: Reports: No Symptoms. Denies: Rash Neurological: Denies: Confusion - Patient Data Vitals - Most Recent: Last Vital Signs Temp 36.5 C 11/17/16 07:00 Pulse 84 11/17/16 07:00 Resp 12 11/17/16 07:00 BP 121/66 11/17/16 07:00 Pulse Ox 95 11/17/16 07:00 Weight - Most Recent: 105.415 kg I&O - Last 24 hours: Intake & Output 11/16/16 11/17/16 11/17/16 22:59 06:59 14:59 Intake Total 510 1731 260 Output Total 600 800 Balance -90 931 260 Lab Results - Last 24 hrs: Laboratory Results - last 24 hr 11/16/16 11/17/16 11/17/16 Range/Units 20:08 02:03 02:03 Sodium 136 (135-145) mmol/L Potassium 2.3 L* 3.1 L (3.6-5.0) mmol/L Chloride 85 L D (101-111) mmol/L Carbon Dioxide 33.0 H (21.0-31.0) mmol/L Anion Gap 20.3 BUN 18 (7-18) mg/dL Creatinine 1.1 (0.6-1.3) mg/dL Est Cr Clr Drug Dosing 45.14 mL/min Estimated GFR (MDRD) 52 Glucose 286 H (74-105) mg/dL Calcium 9.4 (8.4-10.2) mg/dl Magnesium 1.6 L (1.8-2.5) mg/dL 11/17/16 Range/Units 08:10 Sodium (135-145) mmol/L Potassium 2.9 L (3.6-5.0) mmol/L Chloride (101-111) mmol/L Carbon Dioxide (21.0-31.0) mmol/L Anion Gap BUN (7-18) mg/dL Creatinine (0.6-1.3) mg/dL Est Cr Clr Drug Dosing mL/min Estimated GFR (MDRD) Glucose (74-105) mg/dL Calcium (8.4-10.2) mg/dl Magnesium (1.8-2.5) mg/dL Med Orders - Current: Current Medications Albuterol (Proventil Hfa) 0 gm INH ASDIRECTED PRN PRN Reason: Dyspnea Atorvastatin Calcium (Lipitor) 40 mg PO DAILY [facility] Last Admin: 11/17/16 08:22 Dose: 40 mg Duloxetine HCl (Cymbalta) 30 mg PO DAILY [facility] Last Admin: 11/17/16 08:21 Dose: 30 mg Enoxaparin Sodium (Lovenox) 40 mg SUBCUT DAILY [facility] Last Admin: 11/17/16 08:23 Dose: 40 mg Potassium Chloride 10 meq/ (Premix) 100 mls @ 100 mls/hr IV Q2H [facility] Stop: 11/17/16 20:59 Magnesium Sulfate/Dextrose 1 (gm/ Premix) 100 mls @ 100 mls/hr IV ONETIME ONE Stop: 11/17/16 10:43 Budesonide/Formoterol Fumarate (Symbicort) 160/4.5 Mcg Inh Own Med 2 puff INH DAILY [facility] Last Admin: 11/17/16 08:20 Dose: 2 puff Metformin 1000 Mg (Tab Own Med) 0 each PO BIDMEALS [facility] Last Admin: 11/17/16 08:18 Dose: 1 each Metronidazole ( Flagyl) Tab 500 Mg * *Own Med 0 each PO Q8HR [facility] Last Admin: 11/17/16 05:59 Dose: 1 each Non-Formulary Medication (Tretinoin [Retin-A]) 1 squirt TOP Q48H [facility] Ondansetron HCl (Zofran Odt) 4 mg PO Q6H PRN PRN Reason: nausea, able to take PO Ondansetron HCl (Zofran) 4 mg IVPUSH Q6H PRN PRN Reason: Nausea/Vomiting Last Admin: 11/16/16 19:43 Dose: 4 mg Discontinued Medications Potassium Chloride/Sodium Chloride (Normal Saline With 40 Meq Kcl) 1,000 mls @ 100 mls/hr IV ASDIRECTED [facility] Last Admin: 11/17/16 09:09 Dose: 100 mls/hr Potassium Chloride 20 meq/ (Premix) 100 mls @ 50 mls/hr IV ONETIME ONE Stop: 11/16/16 23:03 Last Admin: 11/16/16 21:20 Dose: 50 mls/hr Potassium Chloride (Klor-Con 10) 40 meq PO ONETIME ONE Stop: 11/16/16 19:25 Last Admin: 11/16/16 19:46 Dose: 40 meq Potassium Chloride (Klor-Con 10) 40 meq PO ONETIME ONE Stop: 11/16/16 21:04 Last Admin: 11/16/16 21:19 Dose: 40 meq Potassium Chloride (Klor-Con 10) 40 meq PO ONETIME ONE Stop: 11/16/16 23:01 Last Admin: 11/16/16 23:02 Dose: 40 meq - Exam General: Reports: Alert, Oriented Neck: Reports: Supple Lungs: Reports: Clear to Auscultation, Normal Respiratory Effort Cardiovascular: Reports: Regular Rate, Regular Rhythm Extremities: No Pedal Edema Skin: Reports: Warm, Dry *Q Meaningful Use (DIS) - VTE *Q VTE Criteria *Q: - Stroke *Q Stroke Criteria *Q: - AMI *Q AMI Criteria *Q:
[2016-11-17] MEDS ORDERED: Potassium Chloride 10 MEQ in Premix Bag 1 BAG IV SCH (10:00)
[2016-11-17 11:06] VITALS: BP 128/68
== END 2016-11-17 11:55 ==
LOC: DL.MS 19:19
PROVIDERS: ADMIT Hospitalist; ATTEND Hospitalist
DX: E87.6 Hypokalemia (principal); A04.7 Enterocolitis due to Clostridium difficile; K57.92 Diverticulitis of intestine, part unspecified, without perforation or abscess without bleeding; I10 Essential (primary) hypertension; J44.9 Chronic obstructive pulmonary disease, unspecified; G47.30 Sleep apnea, unspecified; F41.9 Anxiety disorder, unspecified; Z88.0 Allergy status to penicillin; Z79.84 Long term (current) use of oral hypoglycemic drugs; Z79.899 Other long term (current) drug therapy; Z87.891 Personal history of nicotine dependence
CPT/HCPCS: 36415; 80048; 83735; 84132; 96361; 96365; 96366; 96367; 96372; 96375; 96376; A9270; G0378; G0379; J1650; J2405; J3475; J3480

== ENCOUNTER 2017-02-06 06:51 | Day surgery (SDC) | payer BC ==
[~2017-02-06 06:51] MED LIST: Dextrose 5%-0.45% NaCl 1,000 ML IV SCH; Midazolam 1 MG/ML 2 ML SDV ONE; Sodium Chloride 0.9% 10 ML Syringe FLUSH PRN; fentaNYL 100 MCG/2 ML SDV ONE
[2017-02-06] MEDS ORDERED: fentaNYL 100 MCG/2 ML SDV IV ONE ×3 (06:52→07:39)
[2017-02-06] MEDS ORDERED: Midazolam 1 MG/ML 2 ML SDV IV ONE ×7 (06:52→07:45)
--- NOTE | 2017-02-06 10:24 | OR ---
DATE: 02/06/2017 PROCEDURE: Total colonoscopy. INSTRUMENT USED: PCF-H180AL Olympus video colonoscope. PREMEDICATIONS: Fentanyl 100 mcg intravenous, Versed 4 mg intravenous. Nasal O2 cannula. The procedure was done under pulse oximetry, BP recording, and cardiac rehabilitation specialist. INDICATION: The patient with recent episode of lower abdominal pain and diarrhea, treated. CT abnormal in thickened distal left colonic wall. Colonoscopic examination is done for detection of any polypoid lesions and removal, endoscopic hemostasis therapy if needed. DESCRIPTION OF PROCEDURE: Initial rectal exam was unremarkable. Rigid anoscopy was normal. The colonoscope was passed with ease. Few scattered diverticula were noted in the distal left colon. The scope was passed with ease up to the ileocecal area, photographs were taken of the normal-appearing cecum, identified by landmarks of appendiceal orifice and double-bulged ileocecal folds. No bleeding was noted from any of the visualized areas at the commencement of the examination. No stricture. No vascular ectasia. No large isolated ulcerations seen. No evidence of diffuse inflammatory bowel disease in the form of friability, contact bleeding, or ulcerations. No polyp or tumor mass identified. Probing the proximal sides of folds and flexures, using adequate distention and clearing up the stool material withdrawal of the scope was made, cecum to rectum time over 6 minutes. No bleeding was noted from any of the visualized areas at the completion of examination. IMPRESSION: Diverticulosis. The patient tolerated the procedure well. [facility] /[id number]
[2017-02-06 10:38] VITALS: BP 116/61
== END 2017-02-06 10:00 | disposition home or self-care (01) ==
LOC: DL.ENDO 06:51
PROVIDERS: ATTEND Internal Medicine Gastroenterology
DX: K57.30 Diverticulosis of large intestine without perforation or abscess without bleeding (principal); E66.9 Obesity, unspecified; E11.9 Type 2 diabetes mellitus without complications; Z88.0 Allergy status to penicillin; Z91.09 Other allergy status, other than to drugs and biological substances
CPT/HCPCS: 45378; J2250; J3010; J7042

== ENCOUNTER 2017-06-27 13:21 | Emergency (ER) | payer BC ==
[2017-06-27] MEDS: Sodium Chloride 0.9% 10 ML Syringe FLUSH PRN ×2 (14:01→15:16)
--- NOTE | 2017-06-27 14:14 | EDM.PDOC ---
ED HPI GENERAL MEDICAL PROBLEM - General Chief Complaint: General Stated Complaint: CRAMPING & SWELLING [phone] Time Seen by Provider: 06/27/17 14:00 Source of Information: Reports: Patient, RN, RN Notes Reviewed History Limitations: Reports: No Limitations - History of Present Illness INITIAL COMMENTS - FREE TEXT/NARRATIVE: Pt presents to the ER with c/o swelling. She states she had fluid overload and was hospitalized in October. Pt states she was then taken off the Lasix. A few days ago she began feeling as if she were gaining fluid again. She took Diurex yesterday. She states she has urinated quite a bit since taking that, but states she still feels very swollen and edematous. She states she feels some chest heaviness and SOB with this. Denies fever or chills, N/V/D. 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 (see below) Other Treatments EIGHT ARM OPERATOR: Lasix injection Generalized Pain Score (Numeric/FACES): 5 - Related Data Allergies Allergy/AdvReac Type Severity Reaction Status Date / Time cefaclor [From Ceclor] Allergy Severe Facial Verified 06/27/17 13:32 Swelling Penicillins Allergy Severe Swollen Verified 02/06/17 07:23 Tongue DUST MITE EXTRACT Allergy Mild Swollen Uncoded 02/06/17 07:23 Eyes MOLDS AND SMUTS Allergy Mild Swollen Uncoded 02/06/17 07:23 Eyes Home Meds: Home Meds Budesonide/Formoterol [Symbicort 160-4.5 MCG] 2 puff INH BID 05/06/14 [History] DULoxetine [Cymbalta] 30 mg PO DAILY 11/08/16 [History] Potassium Chloride 40 meq PO BID 11/08/16 [History] Tretinoin [Retin-A] 1 squirt TOP Q48H 11/08/16 [History] atorvaSTATin [Lipitor] 40 mg PO DAILY 11/08/16 [History] metFORMIN HCl [Metformin HCl] 1,000 mg PO BIDMEALS 11/08/16 [History] Albuterol Sulfate [Proair Respiclick] 90 mcg IH ASDIRECTED PRN 11/16/16 [History ] SitaGLIPtin [Januvia] 100 mg PO DAILY 02/03/17 [History] Past Medical History HEENT History: Reports: Sinusitis Cardiovascular History: Reports: Hypertension, Other (See Below) Other Cardiovascular History: low potassium Respiratory History: Reports: Bronchitis, Recurrent, COPD, Pneumonia, Recurrent , Sleep Apnea, Other (See Below) Other Respiratory History: emphysema, acute respiratory disorder Gastrointestinal History: Reports: Diverticulosis, Other (See Below) Other Gastrointestinal History: diverticulitis. 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 Other OB/BYN History: misscarriage x2 1 Musculoskeletal History: Reports: None Neurological History: Reports: None Psychiatric History: Reports: Anxiety Endocrine/Metabolic History: Reports: Diabetes, Type II, Obesity/BMI 30+ Other Endocrine/Metabolic History: borderline diabetic Hematologic History: Reports: None Immunologic History: Reports: None Oncologic (Cancer) History: Reports: None Dermatologic History: Reports: Other (See Below) Other Dermatologic History: acne - Infectious Disease History Infectious Disease History: Reports: C-Difficile, Chicken Pox - Past Surgical History Head Surgeries/Procedures: Reports: None HEENT Surgical History: Reports: None Cardiovascular Surgical History: Reports: None Respiratory Surgical History: Reports: None GI Surgical History: Reports: Cholecystectomy, Colonoscopy, EGD Female Surgical History: Reports: Breast Biopsy Other Female Surgeries/Procedures: benign breast biopsy Musculoskeletal Surgical History: Reports: None Oncologic Surgical History: Reports: Biopsy of Breast Social & Family History - Family History Family Medical History: Noncontributory HEENT: Reports: None Cardiac: Reports: None - Tobacco Use Smoking Status *Q: Former Smoker Used Tobacco, but Quit: Yes Month/Year Tobacco Last Used: 06/2014 - Caffeine Use Caffeine Use: Reports: Soda - Recreational Drug Use Recreational Drug Use: No ED ROS GENERAL - Review of Systems Review Of Systems: ROS reveals no pertinent complaints other than HPI. ED EXAM, GENERAL - Physical Exam Exam: See Below Exam Limited By: No Limitations General Appearance: Alert, WD/WN, No Apparent Distress Eye Exam: Bilateral Eye: EOMI, Normal Inspection Ears: Normal External Exam, Hearing Grossly Normal Nose: Normal Inspection Throat/Mouth: Normal Inspection, Normal Voice, No Airway Compromise Head: Atraumatic, Normocephalic Neck: Normal Inspection Respiratory/Chest: No Respiratory Distress, No Accessory Muscle Use, Chest Non- Tender Cardiovascular: Normal Peripheral Pulses, Regular Rate, Rhythm, No Gallop, No JVD, No Murmur, No Rub Peripheral Pulses: 2+: Radial (L), Radial (R) GI/Abdominal: Normal Bowel Sounds, Soft, Non-Tender, No Organomegaly, Distended (edematous) (Female) Exam: Deferred Rectal (Female) Exam: Deferred Back Exam: Normal Inspection, Full Range of Motion Extremities: Normal Inspection, Normal Range of Motion, Non-Tender, Pedal Edema , Other (+2 pitting edema to the lower extrem bilat) Neurological: Alert, Oriented, CN II-XII Intact, Normal Cognition, Normal Gait, Normal Reflexes, No Motor/Sensory Deficits Psychiatric: Normal Affect, Normal Mood Skin Exam: Warm, Dry, Intact, Normal Color, No Rash Lymphatic: No Adenopathy EKG INTERPRETATION EKG Date: 06/27/17 Time: 14:01 Rhythm: NSR Rate (Beats/Min): 88 [place]: Normal P-Wave: Present QRS: Normal ST-T: Normal QT: Normal Comparison: No Change Course - Vital Signs Last Recorded V/S: Last Vital Signs Temp 98.4 F 06/27/17 13:35 Pulse 88 06/27/17 13:35 Resp 20 06/27/17 13:35 BP 135/40 L 06/27/17 13:35 Pulse Ox 97 06/27/17 13:35 - Orders/Labs/Meds Orders: Active Orders 24 hr Category Date Time Status EKG Documentation Completion [RC] STAT Care 06/27/17 14:04 Active Peripheral IV Care [RC] . DIRECTED Care 06/27/17 14:07 Active UA W/MICROSCOPIC [URIN] Stat Lab 06/27/17 14:04 Ordered Sodium Chloride 0.9% [Saline Flush] Med 06/27/17 14:03 Active 10 ml FLUSH ASDIRECTED PRN Peripheral IV Insertion Adult [OM.PC] Stat Oth 06/27/17 14:04 Ordered Medication Orders Sodium Chloride (Saline Flush) 10 ml FLUSH ASDIRECTED PRN PRN Reason: Keep Vein Open Last Admin: 06/27/17 15:16 Dose: 10 ml Admin: 06/27/17 14:01 Dose: 10 ml Labs: Laboratory Tests 06/27/17 06/27/17 Range/Units 14:00 14:00 WBC 8.3 (5.0-10.0) 10^3/uL RBC 5.15 (4.2-5.4) 10^6/uL Hgb 15.2 D (12.0-16.0) g/dL Hct 45.4 (37.0-47.0) % MCV 88.2 D (80-100) fL MCH 29.5 (27.0-34.0) pg MCHC 33.5 (33.0-35.0) g/dL Plt Count 358 D (150-450) 10^3/uL Neut % (Auto) 61.3 (42.2-75.2) % Lymph % (Auto) 28.4 (20.5-50.1) % Holt % (Auto) 8.5 H (2-8) % Eos % (Auto) 1.6 (1.0-3.0) % Baso % (Auto) 0.2 (0.0-1.0) % Sodium 138 (135-145) mmol/L Potassium 3.2 L (3.6-5.0) mmol/L Chloride 93 L (101-111) mmol/L Carbon Dioxide 31.0 (21.0-31.0) mmol/L Anion Gap 17.2 BUN 18 (7-18) mg/dL Creatinine 1.0 (0.6-1.3) mg/dL Est Cr Clr Drug Dosing 49.09 mL/min Estimated GFR (MDRD) 58 BUN/Creatinine Ratio 18.00 Glucose 183 H (74-105) mg/dL Calcium 9.7 (8.4-10.2) mg/dl Total Bilirubin 0.8 (0.2-1.0) mg/dL AST 32 (10-42) IU/L ALT 30 (10-60) IU/L Alkaline Phosphatase 73 (42-121) IU/L Troponin I < 0.02 (0.00-0.02) ng/ml B-Natriuretic Peptide 7 (0-100) pg/ml Total Protein 7.5 (6.7-8.2) g/dl Albumin 4.5 (3.2-5.5) g/dl Globulin 3.0 Albumin/Globulin Ratio 1.50 Meds: Medications Generic Name Dose Route Start Last Admin Trade Name Freq PRN Reason Stop Dose Admin Sodium Chloride 10 ml 06/27/17 14:03 06/27/17 15:16 Saline Flush FLUSH 10 ml ASDIRECTED PRN Administration Keep Vein Open Discontinued Medications Generic Name Dose Route Start Last Admin Trade Name Ирина PRN Reason Stop Dose Admin Furosemide 40 mg 06/27/17 15:07 06/27/17 15:12 Lasix IVPUSH 06/27/17 15:08 40 mg NOW ONE Administration - Radiology Interpretation Free Text/Narrative:: Chest xray: Mild peribronchial cuffing See rad report Departure - Departure Time of Disposition: 15:41 Disposition: Home, Self-Care 01 Condition: Fair Clinical Impression: Retention of fluid - Discharge Information Instructions: Hypokalemia, Edema, [id number] Referrals: Kareem Chen MD [Primary Care Provider] - Forms: ED Department Discharge Additional Instructions: Eat foods high in Potassium Follow up with your primary care facility - My Orders Last 24 Hours: My Active Orders 06/27/17 14:03 Sodium Chloride 0.9% [Saline Flush] 10 ml FLUSH ASDIRECTED PRN 06/27/17 14:04 EKG Documentation Completion [RC] STAT UA W/MICROSCOPIC [URIN] Stat Peripheral IV Insertion Adult [OM.PC] Stat 06/27/17 14:07 Peripheral IV Care [RC] . DIRECTED - Assessment/Plan Last 24 Hours: My Active Orders 06/27/17 14:03 Sodium Chloride 0.9% [Saline Flush] 10 ml FLUSH ASDIRECTED PRN 06/27/17 14:04 EKG Documentation Completion [RC] STAT UA W/MICROSCOPIC [URIN] Stat Peripheral IV Insertion Adult [OM.PC] Stat 06/27/17 14:07 Peripheral IV Care [RC] . DIRECTED
[2017-06-27 14:28] LABS: ANION GAP 17.2; CHLORIDE,CL 93 mmol/L (101-111); SODIUM,NA 138 mmol/L (135-145)
[2017-06-27] MEDS ORDERED: Furosemide 40 MG/4 ML VIAL IVPUSH ONE (15:07)
--- NOTE | 2017-06-27 15:14 | CR ---
CLINICAL HISTORY: 51-year-old obese diabetic female smoker with chest pain. INTERPRETATION: Upright AP portable chest film unremarkable for age and size. Mild peribronchial "cuffing" without air trapping. Normal cardiac silhouette without cephalization of flow, signs of alveolar edema or dependent pleural fluid accumulation. No lung mass, hilar lymphadenopathy or focal lobar pneumonia. NOTE: Dramatic interval clearing since 14 April 2014 exam.
[2017-06-27 16:09] VITALS: BP 152/89
--- NOTE | 2017-06-28 15:53 | EKG ---
06/27/2017 - RIZWAN BARBOSA - FINDINGS: EKG, per my reading, shows sinus rhythm at the rate of 88. [facility] /[id number]
== END 2017-06-27 16:13 | disposition home or self-care (01) ==
LOC: DL.ED 13:21
DX: R60.9 Edema, unspecified (principal); I10 Essential (primary) hypertension; E11.9 Type 2 diabetes mellitus without complications; Z88.1 Allergy status to other antibiotic agents; Z88.0 Allergy status to penicillin; Z79.899 Other long term (current) drug therapy; Z79.84 Long term (current) use of oral hypoglycemic drugs; Z87.891 Personal history of nicotine dependence
CPT/HCPCS: 36415; 71045; 80053; 81001; 83880; 84484; 85025; 93005; 96374; 99285; J1940; J7050

== ENCOUNTER 2023-04-06 04:50 | Inpatient (IN) | payer BC ==
[2023-04-06 05:09] LABS: BASOPHILS PERCENT AUTO 0.1 % (0.0-1.0); EOSINOPHILS PERCENT AUTO 0.2 % (1.0-3.0); HEMATOCRIT 42.1 % (37.0-47.0); HEMOGLOBIN 13.5 g/dL (12.0-16.0); LYMPHOCYTES PERCENT AUTO 10.8 % (20.5-50.1); MEAN CORPUSCULAR HEMOGLOBIN 28.8 pg (27.0-34.0); MEAN CORPUSCULAR HGB CONC 32.1 g/dL (33.0-35.0); MEAN CORPUSCULAR VOLUME 89.8 fL (80-100); MONOCYTES PERCENT AUTO 9.8 % (2-8); NEUTROPHILS PERCENT AUTO 79.1 % (42.2-75.2); PLATELET COUNT,PLT 251 10^3/uL (150-450); RED BLOOD CELL COUNT 4.69 10^6/uL (4.2-5.4); WHITE BLOOD CELL COUNT,WBC 8.1 10^3/uL (5.0-10.0)
[2023-04-06] MEDS: methylPREDNISolone Sodium Succinate 125 MG/2 ML SDV IVPUSH ONE (05:11)
[2023-04-06] MEDS: Acetaminophen 500 MG Tab PO ONE (05:11)
[2023-04-06] MEDS: Albuterol/Ipratropium 3.0-0.5 MG/3 ML Neb Soln NEB ONE (05:12)
[2023-04-06] MEDS: Sodium Chloride 0.9% 10 ML Syringe FLUSH PRN (05:12)
[2023-04-06 05:27] LABS: A/G RATIO 0.9; ALANINE AMINOTRANSFERASE,ALT 25 U/L (14-59); ALBUMIN 3.7 g/dL (3.4-5.0); ALKALINE PHOSPHATASE 94 U/L (46-116); ANION GAP 11.7 mEq/L (7-13); ASPARTATE AMNIOTRANSFERASE,AST 16 U/L (15-37); BILIRUBIN TOTAL 1.2 mg/dL (0.2-1.0); BLOOD UREA NITROGEN,BUN 12 mg/dL (7-18); C-REACTIVE PROTEIN 2.87 ng/dL (<=0.50); CALCIUM 8.4 mg/dL (8.5-10.1); CARBON DIOXIDE,CO2 28 mmol/L (21-32); CHLORIDE,CL 101 mmol/L (98-107); CREATININE 0.86 mg/dL (0.55-1.02); EST CRCL DRUG DOSING (CG) 50.59 mL/min; GLUCOSE RANDOM 213 mg/dL (70-99); MAGNESIUM 1.7 mg/dL (1.8-2.4); POTASSIUM,K 3.7 mmol/L (3.5-5.1); PROTEIN TOTAL,TP 7.6 g/dL (6.4-8.2); SODIUM,NA 137 mmol/L (136-145)
[2023-04-06 05:28] LABS: ESTIMATED GFR 78 mL/min (>=60)
[2023-04-06 05:33] LABS: LACTIC ACID 1.2 mmol/L (0.4-2.0)
[2023-04-06] MEDS: Magnesium Sulfate/Water 2 GM in Premix Bag 1 BAG IV ONE (05:33)
[2023-04-06 05:41] LABS: B-TYPE NATRIURETIC PEPTIDE,BNP 79 pg/ml (0-100)
[2023-04-06 05:47] LABS: CORONAVIRUS COVID-19 NAA NEGATIVE (NEGATIVE); INFLUENZA A NAA POSITIVE (NEGATIVE); INFLUENZA B NAA NEGATIVE (NEGATIVE); RESPIRATORY SYNCYTIAL VIR NAA NEGATIVE (NEGATIVE)
[2023-04-06] MEDS: Albuterol 0.083% 2.5 MG/3 ML Neb Soln NEB ONE (06:11)
[2023-04-06] MEDS: Azithromycin 500 MG in Sodium Chloride 0.9% 250 ML IV ONE (06:12)
[2023-04-06] MEDS ORDERED: Ondansetron 4 MG/2 ML SDV IVPUSH PRN (10:39)
[2023-04-06] MEDS ORDERED: Bisacodyl 5 MG Tab PO PRN (10:39)
[2023-04-06] MEDS ORDERED: Acetaminophen/HYDROcodone 325-5 MG Tab PO PRN (10:39)
[2023-04-06] MEDS ORDERED: Albuterol 0.083% 2.5 MG/3 ML Neb Soln NEB PRN (10:39)
[2023-04-06] MEDS ORDERED: Docusate Sodium 100 MG Cap PO PRN (10:39)
[2023-04-06] MEDS ORDERED: Albuterol 6.7 GM Inhaler INH PRN (11:22)
[2023-04-06] MEDS: methylPREDNISolone Sodium Succinate 40 MG/1 ML SDV IVPUSH SCH (12:34)
[2023-04-06] MEDS: Enoxaparin 40 MG/0.4 ML Syringe SUBCUT SCH (12:34)
[2023-04-06] MEDS: Oseltamivir 75 MG Cap PO SCH (12:35)
[2023-04-06] MEDS: Albuterol/Ipratropium 3.0-0.5 MG/3 ML Neb Soln NEB PRN (13:07)
[2023-04-06] MEDS: Formoterol/Mometasone 100-5 MCG 8.8 GM Inhaler IH SCH (17:35)
[2023-04-06] MEDS: atorvaSTATin 20 MG Tab PO SCH (20:35)
[2023-04-06] MEDS: Tiotropium Bromide 4 GM Inhalation Spray (2.5mcg/1 dose; 10 doses) INH SCH (20:35)
[2023-04-06] MEDS ORDERED: Formoterol/Mometasone 100-5 MCG 8.8 GM Inhaler IH SCH (21:00)
[2023-04-06] MEDS: Melatonin 3 MG Tab PO PRN (21:00)
[2023-04-07] MEDS: Tiotropium Bromide 4 GM Inhalation Spray (2.5mcg/1 dose; 10 doses) INH SCH (06:17)
[2023-04-07 06:25] LABS: BASOPHILS PERCENT AUTO 0.1 % (0.0-1.0); EOSINOPHILS PERCENT AUTO 0.1 % (1.0-3.0); HEMATOCRIT 38.1 % (37.0-47.0); HEMOGLOBIN 12.4 g/dL (12.0-16.0); MEAN CORPUSCULAR HEMOGLOBIN 29.1 pg (27.0-34.0); MEAN CORPUSCULAR HGB CONC 32.5 g/dL (33.0-35.0); MEAN CORPUSCULAR VOLUME 89.4 fL (80-100); MONOCYTES PERCENT AUTO 6.2 % (2-8); NEUTROPHILS PERCENT AUTO 86.6 % (42.2-75.2); PLATELET COUNT,PLT 249 10^3/uL (150-450); RED BLOOD CELL COUNT 4.26 10^6/uL (4.2-5.4); WHITE BLOOD CELL COUNT,WBC 9.2 10^3/uL (5.0-10.0)
[2023-04-07 06:33] LABS: ANION GAP 11.4 mEq/L (7-13); CALCIUM 8.2 mg/dL (8.5-10.1); CREATININE 0.86 mg/dL (0.55-1.02); EST CRCL DRUG DOSING (CG) 130.07 mL/min; POTASSIUM,K 4.4 mmol/L (3.5-5.1)
[2023-04-07] MEDS ORDERED: Glucagon,Human Recombinant 1 MG Vial IM PRN (08:17)
[2023-04-07] MEDS ORDERED: 50% Dextrose in Water 50 ML Syringe IVPUSH PRN (08:17)
[2023-04-07] MEDS: metFORMIN 500 MG Tab PO SCH (10:18)
[2023-04-07] MEDS: Azithromycin 250 MG Tab PO SCH (10:18)
[2023-04-07] MEDS: DULoxetine 30 MG Cap PO SCH (10:18)
[2023-04-07] MEDS: Insulin Lispro 100 Units/ML 3 ML Vial SUBCUT ONE ×2 (10:21→12:40)
[2023-04-07] MEDS: Insulin Lispro 100 Units/ML 3 ML Vial SUBCUT SCH (12:38)
[2023-04-07] MEDS: guaiFENesin 600 MG Tab.ER PO SCH (12:41)
[2023-04-07] MEDS: Acetaminophen 325 MG Tab PO PRN (20:29)
[2023-04-08 06:19] LABS: HEMATOCRIT 39.7 % (37.0-47.0); HEMOGLOBIN 12.6 g/dL (12.0-16.0); LYMPHOCYTES PERCENT AUTO 7.2 % (20.5-50.1); MEAN CORPUSCULAR HEMOGLOBIN 28.9 pg (27.0-34.0); MEAN CORPUSCULAR HGB CONC 31.7 g/dL (33.0-35.0); MEAN CORPUSCULAR VOLUME 91.1 fL (80-100); MONOCYTES PERCENT AUTO 6.1 % (2-8); NEUTROPHILS PERCENT AUTO 86.7 % (42.2-75.2); PLATELET COUNT,PLT 251 10^3/uL (150-450); RED BLOOD CELL COUNT 4.36 10^6/uL (4.2-5.4); WHITE BLOOD CELL COUNT,WBC 11.7 10^3/uL (5.0-10.0)
[2023-04-08 06:38] LABS: ANION GAP 9.8 mEq/L (7-13); CALCIUM 8.6 mg/dL (8.5-10.1); CREATININE 0.89 mg/dL (0.55-1.02); EST CRCL DRUG DOSING (CG) 125.69 mL/min; POTASSIUM,K 4.8 mmol/L (3.5-5.1)
[2023-04-08] MEDS ORDERED: Losartan 50 MG Tab PO SCH (09:00)
[2023-04-08 12:17] VITALS: BP 143/70; PULSE 76
[2023-04-09] MEDS ORDERED: predniSONE 20 MG Tab PO SCH (08:00)
== END 2023-04-08 13:40 | disposition home or self-care (01) | DRG 139 ==
LOC: DL.ED 04:50 → DL.MS 07:55 → DL.ED 08:15
PROVIDERS: ADMIT Internal Medicine; ATTEND Internal Medicine
DX: J11.00 Influenza due to unidentified influenza virus with unspecified type of pneumonia (principal); J96.01 Acute respiratory failure with hypoxia; J44.0 Chronic obstructive pulmonary disease with (acute) lower respiratory infection; E11.9 Type 2 diabetes mellitus without complications; E66.9 Obesity, unspecified; G47.33 Obstructive sleep apnea (adult) (pediatric); I11.0 Hypertensive heart disease with heart failure; I50.9 Heart failure, unspecified; F41.9 Anxiety disorder, unspecified; E78.5 Hyperlipidemia, unspecified; Z79.84 Long term (current) use of oral hypoglycemic drugs; Z79.51 Long term (current) use of inhaled steroids; Z79.899 Other long term (current) drug therapy; Z88.0 Allergy status to penicillin; Z88.8 Allergy status to other drugs, medicaments and biological substances; Z90.49 Acquired absence of other specified parts of digestive tract; Z98.890 Other specified postprocedural states; Z90.5 Acquired absence of kidney; Z85.528 Personal history of other malignant neoplasm of kidney; Z87.891 Personal history of nicotine dependence; Z68.30 Body mass index [BMI] 30.0-30.9, adult
CPT/HCPCS: 0241U; 36415; 71045; 80048; 80053; 82947; 83605; 83735; 83880; 84145; 85025; 86140; 87040; 94010; 94060; 94640; 94664; 94667; 94668; 94760; 99223; 99232; 99239; A9270-GY; J0456; J1650; J1815-GY; J2920; J2930; J3475; J3490; J7050; J7613-GY; J7620-GY

== ENCOUNTER 2023-07-14 18:37 | Emergency (ER) | payer BC, OTHER ==
[2023-07-14 19:50] VITALS: BP 187/80; PULSE 77
[2023-07-14] MEDS: Take Home: Ondansetron 4 MG Tab.DIS, 5 Tab Pack PO ONE (21:13)
[2023-07-14] MEDS: Acetaminophen 500 MG Tab PO ONE (21:14)
== END 2023-07-14 21:24 | disposition home or self-care (01) ==
LOC: DL.ED 18:37
DX: S60.222A Contusion of left hand, initial encounter (principal); R51.9 Headache, unspecified; I50.9 Heart failure, unspecified; J45.909 Unspecified asthma, uncomplicated; E11.9 Type 2 diabetes mellitus without complications; E66.9 Obesity, unspecified; Z68.43 Body mass index [BMI] 50.0-59.9, adult; Z79.899 Other long term (current) drug therapy; Z88.0 Allergy status to penicillin; Z88.1 Allergy status to other antibiotic agents; Z91.048 Other nonmedicinal substance allergy status; Z86.16 Personal history of COVID-19; V89.2XXA Person injured in unspecified motor-vehicle accident, traffic, initial encounter
CPT/HCPCS: 70450; 72125; 73120; 99284; A9270; Q0162